=== PATIENT | female | born 1930 | race Caucasian/White ===

== ENCOUNTER 2018-03-02 00:27 | Inpatient (IN) | payer MEDICARE ==
[~2018-03-02] VITALS: Ht 157.5 cm; Wt 59.9 kg
[~2018-03-02 00:27] MED LIST: ARICEPT10 M1 PO; ASPIR 8181 MG PO; CALCIUM 600 +1 EAC1 PO; CELEXA20 MG PO; CEPACOL SORE T1 EAC7 MM; COZAAR 25MG TAB25 MG PO; IRON325 PO; LEVAQUIN 500 M500 M2 PO; LEVAQUIN 500 M500 MG PO; LIPITOR10 MG PO; MELATONIN3 MG PO; NORCO 5-325 TA1 EACH PO; PEPCID20 MG PO; TYLENOL325 MG PO; UNICOMPLEX M TA1 TA1 PO
[2018-03-02 00:29] VITALS: BP 119/54
[2018-03-02] MEDS ORDERED: DUONEB 2.5-0.5 M3 ML INH (00:56)
[2018-03-02 01:11] LABS: ABSOLUTE BASOPHILS 0.1 thou/uL (0.0-0.2); ABSOLUTE EOSINOPHILS 0.7 thou/uL (0.0-0.7); ABSOLUTE LYMPHOCYTES 1.7 thou/uL (0.8-5.3); ABSOLUTE MONOCYTES 1.4 thou/uL (0.0-1.2); ABSOLUTE NEUTROPHILS 9.5 thou/uL (1.6-8.1); BASOPHILS 0.6 %; EOSINOPHILS 5.2 %; HEMOGLOBIN 9.8 gm/dL (12.0-15.0); LYMPHOCYTES 12.7 %; MCH 29.9 pg (26.0-34.0); MCHC 32.6 g/dL (28.0-37.0); MCV 91.8 fL (80.0-100.0); MONOCYTES 10.4 %; MPV 9.6 fl. (7.2-11.1); NUCLEATED RBCS 0 /100WBC; PLATELET COUNT* 251 thou/uL (150-400); POLYS 71.1 %; RBC 3.27 mil/uL (4.20-5.00); RDW-CV 14.2 % (10.5-14.5); WBC 13.4 thou/uL (4.0-11.0)
[2018-03-02] MEDS ORDERED: VERAPAMIL ER180 MG PO (01:14)
[2018-03-02 01:16] LABS: CALCIUM 8.3 mg/dL (8.5-10.1); CREATININE 1.8 mg/dL (0.6-1.3); POTASSIUM 3.9 mmol/L (3.5-5.1)
[2018-03-02 01:21] LABS: TOTAL BILIRUBIN 0.3 mg/dL (<0.1-1.0); TOTAL PROTEIN 7.1 g/dL (6.4-8.2)
[2018-03-02] MEDS ORDERED: BENADRYL25 MG PO (01:30)
--- NOTE | 2018-03-02 01:39 | NUR ---
CALLED [facility] AND ASKED IF THEY NOTIFIED PT'S FAMILY OF TRANSFER TO ED.
--- NOTE | 2018-03-02 01:50 | NUR ---
TALKED WITH ISAAC ESCOTO AT [facility]. SHE TALKED WITH PT'S DAUGHTER WINSOME PRABHAKAR. NURSE IS CONCERNED BECAUSE PT LIVES IN [facility] AND YESTERDAY SHE WAS INCONTENT OF BOWEL AND BLADDER WHICH IS NEW FOR PT. PT ALSO C/O INCREASED BACK PAIN AND DIFFICULTY WALKING
[2018-03-02 02:01] LABS: URINE BLOOD 1+ (Negative); URINE CLARITY CLEAR; URINE COLOR YELLOW; URINE GLUCOSE-RANDOM NEGATIVE (Negative); URINE KETONES NEGATIVE (Negative); URINE LEUKOCYTES-REFLEX NEGATIVE (Negative); URINE NITRITE-REFLEX NEGATIVE (Negative); URINE PROTEIN TRACE (Negative); URINE UROBILINOGEN 0.2 E.U./dl (0.2-1.0)
[2018-03-02 02:04] LABS: URINE BILIRUBIN 1+ (Negative)
[2018-03-02 02:06] LABS: ICTOTEST (BILI CONFIRMATORY) Negative (Negative)
[2018-03-02 02:35] LABS: HYALINE CASTS 4-10 Moderate /LPF (None Seen); SQUAMOUS 0-3 Few /LPF (0-3); URINE WBC-REFLEX 0-5 Rare /HPF (0-5)
[2018-03-02 02:36] LABS: CRYSTALS None Seen /LPF (None Seen); URINE RBC 3-10 Few /HPF (0-2)
[2018-03-02 03:15] VITALS: BP 145/56
--- NOTE | 2018-03-02 05:37 | NUR ---
PT ADMITTED FROM ER. HISTORY AND ASSESSMENT COMPLETE. ORIENTED TO ROOM, CALL LIGHT, AND BED CONTROLS. PT WITH HX OF DEMENTIA. PT A POOR HISTORIAN. CONFUSED AND FORGETFUL. IVF INFUSING. PT WITH RED AREAS TO BOTTOM. PICTURES IN CHART. FALL PRECAUTIONS IN PLACE INCLUDING BED ALARM.
[2018-03-02 08:15] VITALS: BP 110/48
--- NOTE | 2018-03-02 08:52 | NUR ---
ASSUMED CARE OF PATIENT AFTER REPORT THIS MORNING. PATIENT SLEEPING, EASY TO WAKE, ALERT AND ORIENTED APPROPRIATELY. PHYSICAL ASSESSMENT COMPLETED AND CHARTED. NO COMPLAINTS OF PAIN. NO SCHEDULED MEDICATIONS ORDER TO ADMINISTER AT THIS TIME. WILL NOTIFY PHYSICIAN. PATIENT TRANSFERS AND AMBULATES WITH ASSISTANCE FROM STAFF. USES CALL LIGHT APPROPRIATELY. DENIES NEEDS AT THIS TIME. CALL LIGHT WITHIN REACH. NURSING WILL CONTINUE TO MONITOR.
--- NOTE | 2018-03-02 10:16 | EKG ---
[place] [address] ELECTROCARDIOGRAM REPORT Name: JONAH COHEN Room: [address] ADM IN ..#: [id number] Admission: 03/02/18 Attend Phys: Charlene Silva MD Discharge: Date of : 32 Report #: [id number] THIS REPORT FOR: //name// [facility] ED Test Date: 2018-03-02 Test Time: 02:39:16 Pat Name: JONAH COHEN Department: Room: [facility] Gender: F Care Associate: GL : 1930 Requested By: Santana Ball Order Number: [id number] MD: Ketan Dangelo Measurements Intervals Bladen Rate: 86 P: 79 CO: 138 QRS: 0 QRSD: 73 T: 29 QT: 432 QTc: 517 Interpretive Statements Sinus rhythm supraventricular premature complex Probable left atrial enlargement Low voltage, extremity leads Probable septal infarct, old Prolonged QT interval Compared to ECG 03/12/2012 11:20:06 supraventricular premature complex(es) now present Low QRS voltage now present Prolonged QT interval now present Myocardial infarct finding still present Electronically Signed On 03-02-2018 10:16:44 CDT by Ketan Dangelo [email or web address] <ELECTRONICALLY SIGNED> By: Ketan Dangelo MD, FACC 03/02/18 1016 0239 0239 Ketan Dangelo MD, FACC /EPI
[2018-03-02 11:45] VITALS: BP 108/45
--- NOTE | 2018-03-02 14:29 | NUR ---
CM ASSESSMENT: Pt is A&O. Resides at [facility]. Pt states that she normally is able to get around with a walker. Pt reports back pain since fall, discussed possible need for skilled, Pt open to skilled, but unsure of what she will need at this time. Pt states that she wears 2L o2 at [facility]. Supportive family that is involved in POC. Following.
[2018-03-02 15:37] VITALS: BP 132/58
--- NOTE | 2018-03-02 15:53 | 2DMMODE ---
[place] [address] 2 D/M-MODE ECHOCARDIOGRAM Name: JONAH COHEN Room: [address] IN [facility]#: [id number] Admission: 03/02/18 Attend Phys: Charlene Silva, Discharge: Date of : 32 Date of Service: 03/02/18 1553 Report #: [id number] THIS REPORT FOR: //name// APPROVED REPORT Study performed: 03/02/2018 11:43:56 EXAM: Comprehensive 2D, Doppler, and color-flow Echocardiogram Patient Location: In-Patient Room #: 202 Status: routine BSA: 1.57 HR: 87 bpm BP: 108/45 mmHg Rhythm: NSR Other Information Study Quality: Good Indications Murmur Syncope 2D Dimensions LVEF(%): 63.33 (>50%) IVSd: 10.37 (7-11mm) LVOT Diam: 19.25 (18-24mm) LVDd: 31.12 mm PWd: 10.04 (7-11mm) LVDs: 20.78 (25-40mm) Aortic Root: 26.94 mm Mayes's LVEF: 63.33 % Volumes Left Atrial Volume (Systole) LA ESV Index: 18.30 mL/m2 Aortic Valve AoV Peak Magdiel.: 1.76 m/s AO Peak Gr.: 12.39 mmHg LVOT Max P.02 mmHg AO Mean Gr.: 6.62 mmHg LVOT Mean P.08 mmHg LVOT Max V: 1.00 m/s AO V2 VTI: 32.86 cm LVOT Mean V: 0.68 m/s MARICRUZ (VTI): 2.19 cm2 LVOT V1 VTI: 24.79 [place] [address] 2 D/M-MODE ECHOCARDIOGRAM Name: JONAH COHEN Room: [address] IN M.R.#: [id number] Admission: 03/02/18 Attend Phys: Charlene Silva, Discharge: Date of : 32 Date of Service: 03/02/18 1553 Report #: [id number] E/A Ratio: 0.84 MV Decel. Time: 215.48 ms MV E Max Magdiel.: 1.26 m/s MV PHT: 62.49 ms MVA (PHT): 3.52 cm2 TDI E/Lateral E': 14.00 E/Medial E': 14.00 Medial E' Magdiel.: 0.09 m/s Lateral E' Magdiel.: 0.09 m/s Pulmonary Valve PV Peak Magdiel.: 1.37 m/s PV Peak Gr.: 7.50 mmHg Tricuspid Valve TR Peak Gr.: 56.36 mmHg RVSP: 61.00 mmHg Left Ventricle The left ventricle is normal size. There is normal LV segmental wall motion. There is normal left ventricular wall thickness. Left ventricular systolic function is normal. LVEF is 60-65%. Grade I - abnormal relaxation pattern. Right Ventricle The right ventricle is normal size. The right ventricular systolic function is normal. Atria The left atrium size is normal. The right atrium size is normal. Aortic Valve Mild aortic valve sclerosis. No aortic regurgitation is present. There is no aortic valvular stenosis. Mitral Valve There is mitral annular calcification. Trace mitral regurgitation. No evidence of mitral valve stenosis. Tricuspid Valve The tricuspid valve is normal in structure. Moderate tricuspid regurgitation. The RVSP is >60 mmHg. Pulmonic Valve The pulmonary valve is normal in structure. There is no pulmonic [place] [address] 2 D/M-MODE ECHOCARDIOGRAM Name: COHENJONAH Room: [address] IN [facility]#: [id number] Admission: 03/02/18 Attend Phys: Charlene Silva, Discharge: Date of : 32 Date of Service: 03/02/18 1553 Report #: [id number] Great Vessels The aortic root is normal in size. IVC is normal in size and collapses with >50% inspiration Pericardium There is no pericardial effusion. <Conclusion> The left ventricle is normal size. There is normal left ventricular wall thickness. Left ventricular systolic function is normal. LVEF is 60-65%. Grade I - abnormal relaxation pattern. Mild aortic valve sclerosis. Trace mitral regurgitation. Moderate tricuspid regurgitation. The RVSP is >60 mmHg. IVC is normal in size and collapses with >50% inspiration <ELECTRONICALLY SIGNED> By: Blane Zaman MD, FACC 03/02/18 1553 1553 1553 Blane Zaman MD, FACC /INF
--- NOTE | 2018-03-02 17:52 | NUR ---
PATIENT REMAINS ALERT AND ORIENTED APPROPRIATELY, CONFUSED AT TIMES AND FORGETFUL. TRANSFERS AND AMBULATES WITH ASSISTANCE FROM STAFF, USES CALL LIGHT APPROPRIATELY. GIVEN PRN MEDICATIONS FOR PAIN, SEE EMAR FOR DOCUMENTATION. DENIES NEEDS AT THIS TIME. CALL LIGHT WITHIN REACH. NURSING WILL CONTINUE TO MONITOR.
[2018-03-02 20:00] VITALS: BP 113/47
[2018-03-03] VITALS (7 sets, daily range): BP systolic 82–151; BP diastolic 33–64
--- NOTE | 2018-03-03 05:40 | NUR ---
PT CARE ASSUMED AFTER REPORT. ASSESSMENT COMPLETE. SR ON MONITOR. PRN PAIN MEDICATION GIVEN PER PT REQUEST. IVF INFUSING. PT CONFUSED AND FORGETFUL. O2 2L NC. FALL PRECAUTIONS IN PLACE INCLUDING BED ALARM. CALL LIGHT IN REACH. BED IN LOWEST POSITION. PROGRESSING TOWARDS GOALS.
--- NOTE | 2018-03-03 09:44 | NUR ---
ASSUMED CARE OF PATIENT AFTER REPORT THIS MORNING. PATIENT AWAKE, ALERT, AND ORIENTED TO SELF, PLACE, AND SITUATION. PHYSICAL ASSESSMENT COMPLETED AND CHARTED. COMPLAINDED OF PAIN. GIVEN PRN AND SCHEDULED MEDICATIONS, SEE EMAR FOR DOCUMENTATION. VITAL SIGNS STABLE. OXYGEN SATURATION LOW AT 85% ON 2 LPM. INCREASED OXYGEN ADMINISTRATION TO 4 LPM AND SATURATION INCREASED TO >90%. PHYSICAL THERAPY WALKED WITH PATIENT TO THE BATHROOM AND OXYGEN SATURATION DECREASED TO 75% ON 4 LPM PER NASAL CANULA. OXYGEN ADMINISTRATION INCREASED TO 6 LPM PER NASAL CANULA TO GET SATURATION > 90%. PHYSICIAN PAGED ABOUT PATIENT'S DIFFICULTY BREATHING. PATIENT IS AT REST AT THIS TIME AND IS ON 4 LPM PER NASAL CANULA WITH SATURATION > 90%. PATIENT TRANSFERS AND AMBULATES WITH TWO PERSON ASSISTANCE FROM STAFF. USES CALL LIGHT APPROPRIATELY. DENIES NEEDS AT THIS TIME. CALL LIGHT WITHIN REACH. NURSING WILL CONTINUE TO MONITOR.
[2018-03-03 12:13] LABS: HEMATOCRIT 27.9 % (37.0-47.0); HEMOGLOBIN 8.9 gm/dL (12.0-15.0); MCH 29.7 pg (26.0-34.0); MCHC 31.9 g/dL (28.0-37.0); MPV 9.1 fl. (7.2-11.1); NUCLEATED RBCS 0 /100WBC; PLATELET COUNT* 261 thou/uL (150-400); RDW-CV 14.2 % (10.5-14.5); WBC 9.9 thou/uL (4.0-11.0)
[2018-03-03 12:26] LABS: ALBUMIN 2.6 g/dL (3.4-5.0); CALCIUM 7.9 mg/dL (8.5-10.1); CREATININE 1.2 mg/dL (0.6-1.3); TOTAL BILIRUBIN 0.2 mg/dL (<0.1-1.0); TOTAL PROTEIN 6.4 g/dL (6.4-8.2)
[2018-03-03 12:37] LABS: ABSOLUTE EOSINOPHILS 0.1 thou/uL (0.0-0.7); ABSOLUTE LYMPHOCYTES 0.8 thou/uL (0.8-5.3); ABSOLUTE MONOCYTES 0.4 thou/uL (0.0-1.2); ABSOLUTE NEUTROPHILS 8.6 thou/uL (1.6-8.1); ANISOCYTOSIS 1+; OVALOCYTES Occasional; PLATELET ESTIMATE ADEQUATE; POIKILOCYTOSIS 1+
--- NOTE | 2018-03-03 17:42 | NUR ---
PATIENT REMAINS ALERT AND ORIENTED TO SELF, PLACE, AND SITUATION. HAS BEEN UP IN CHAIR AT BEDSIDE FOR MOST OF SHIFT. HAS USED BEDSIDE COMMODE SEVERAL TIMES WITH ASSISTANCE FROM STAFF. DENIES NEEDS AT THIS TIME. CALL LIGHT WITHIN REACH. NURSING WILL CONTINUE TO MONITOR.
[2018-03-04 04:00] VITALS: BP 120/57
--- NOTE | 2018-03-04 05:25 | NUR ---
PATIENT ALERT TO SELF, HISTORY OF DEMENTIA. PLEASANTLY CONFUSED. VITALS STABLE ON 4L OF OXYGEN. INCONTINENT OF URINE. REPOSITIONED EVERY TWO HOURS. COMPLAINTS OF BACK PAIN. HYDROCODONE GIVEN, EFFECTIVE. SINUS RHYTHM ON THE FREIGHT RECEIVER. SLEPT COMFORTABLY. UP WITH ASSIST X 1 WALKER, GAITBELT. BED ALARM IN USE. FREQUENT ROUNDS. NURSING WILL CONTINUE TO MONITOR.
[2018-03-04 08:00] VITALS: BP 134/40
--- NOTE | 2018-03-04 11:15 | NUR ---
Plan for Pt to dc to [facility] skilled, anticipate that Pt will be ready to dc tomorrow. Faxed referral, [facility] can accept Pt tomorrow.
[2018-03-04 12:00] VITALS: BP 117/47
[2018-03-04 16:00] VITALS: BP 124/59; BP 139/69; BP 143/57
--- NOTE | 2018-03-04 16:41 | NUR ---
RECEIVED REPORT. ASSUMED CARE OF PT AROUND 729. PT ALERT AND ORIENTED TO PERSON, PLACE, SITUATION AND MONTH. PT IS VERY FORGETFUL AND REPEATS HERSELF OFTEN, BUT VERY PLEASANT. H/O DEMENTIA. VSS. O2 SAT 97%, TITRATED DOWN TO 3L PER NC. IV INTACT AND SALINE LOCKED. PT UP TO BEDSIDE COMMODE WITH ASSIST X1 AND WALKER FOR SMALL BM. PT INCONTINENT OF URINE AND REQUESTING TO WEAR INCONTINENT BRIEFS. BREIFS CHECKED AND CHANGED Q2HRS AND PRN. PT EATING AND DRINKING WITHOUT ISSUE. PT HAS SAT UP IN BEDSIDE CHAIR MOST OF SHIFT. WAFFLE CUSHION OBTAINED AND PLACED UNDER BOTTOM IN CHAIR. CHAIR ALARM IS ON. ORTHOSTATIC BP'S CHARTED UNDER VITAL SIGNS 1600. PT WORKED WITH P.T. TODAY. BRUISE TO RIGHT ELBOW NOTED. PT CURRENTLY SITTING IN BEDSIDE CHAIR AWAITING DINNER AND WATCHING TV. FALL PRECAUTIONS IN PLACE. CALL LIGHT IS WITHIN REACH. ALL NEEDS MET AT THIS TIME. WCTM FOR DURATION OF SHIFT. HOURLY ROUNDING PERFORMED.
[2018-03-04 20:00] VITALS: BP 157/56
[2018-03-05] VITALS: BP 153/65
--- NOTE | 2018-03-05 05:22 | NUR ---
ASSUMED CARE OF PT AT 1900 ALERT BUT CONFUSED AT BASELINE VSS. PT ASSISTED TO BED AND POSITIONED PT IMMEDIATLY REPOSITIONED HERSELF ON HER BACK. PT INCONTINENT OF LG AMOUNTS OF URINE THROUGHOUT THE SHIFT INCONTINENCE CARE PROVIDED. PT DENIED ANY COMPLINTS AND SLEPT THROUGH THE NIGHT. WILL CONTINUE PLAN OF CARE.
[2018-03-05 08:00] VITALS: BP 128/43
--- NOTE | 2018-03-05 11:34 | NUR ---
ORDERS NOTED FOR DC TO SNF, PT TO GO TO [facility]. MED WITH PT AND SPOKE WITH ADAMR/RACHEL OVER THE PHONE, IN AGREEMENT. CALLED AND FAXED DC ORDERS TO [facility] SHE SET UP W/C VAN FOR 230PM. CHART COPIED AND ORDERS FAXED TO [facility]. RN HAS NUMBER TO CALL REPORT
[2018-03-05 11:41] VITALS: BP 128/43
[2018-03-05] MEDS ORDERED: LASIX 20 MG TAB20 MG PO (12:31)
--- NOTE | 2018-03-05 13:28 | NUR ---
RECEIVED REPORT. ASSUMED CARE OF PT AROUND 0730. PT ABLE TO ANSWER ORIENTEATION QUESTIONS BUT IS VERY FORGETFUL AND CONFUSED AT TIMES, REPEATINNG THE SAME QUESTIONS MANY TIMES. PT HAS DEMENTIA. PT IS M/S STATUS. AM ASSESSMENT AND VITALS COMPLETED CHARTED. IV INTACT AND SALINE LOCKED. PT HAS DENIED PAIN OR DISCOMFORT SO FAR THIS SHIFT. LATE THIS MORNING PT BECAME MORE SOB COMPARED TO YESTERDAY, UPPER LUNG LOBES SOUND COARSE AND WHEEZES ARE AUDIBLE WHEN ENTERING THE ROOM. PT VERY FATIGUED AND WANTING TO STAY IN BED. ONETIME ORDER OF IV LASIX OBTAINED FROM DR BLACK AND ADMINISTERED. LASIX 20MG DAILY ALSO ADDED TO MED REC PER DR BLACK. PT INCONTINENT - HAS BEEN REPOSITIONED AND CLEANED UP SEVERAL TIMES THIS SHIFT. PT SHOWING DECREASED APPETITE TODAY, STATING "I JUST WANT TO REST." DISCHARGE ORDERS RECIEVED FOR PT TO TRANSFER TO SKILLED FACILITY. DISCHARGE COMPLTED CHARTED. DISCHARGE PACKET PUT TOGEHTER AND READY TO SEND WITH TRANSPORTER. PT CURRENTLY RESTING IN BED. FALL PRECAUTIONS ARE IN PLACE. CALL LIGHT IS WITHIN REACH. HOURLY ROUNDING PERFORMED. WCTM FOR DURATION OF SHIFT.
--- NOTE | 2018-03-08 08:14 | CON ---
[address] [address] CONSULTATION Name: JONAH COHEN Room: [address] IN .R.#: [id number] Admission: 03/02/18 Attend Phys: Charlene Silva MD Discharge: 03/05/18 Date of : 31 Report #: [id number] THIS REPORT FOR: //name// CC: Charlene Rose INDICATION: Syncope. HISTORY OF PRESENT ILLNESS: The patient is a very pleasant 87-year-old white female who denies any significant prior cardiac history. Cardiac risk factors include hypertension and dyslipidemia. She was admitted to the hospital after being found unconscious in her room at [facility]. The patient does not recall falling. She does not recall passing out. She does report recalling being transported to the hospital for further evaluation. Since her fall, she complains of back and hip pain. She states that prior to her fall, she did not have back or hip pain. She denies chest pain. She is not having lightheadedness or dizziness. She is without other cardiac complaint at this time. Cardiac enzymes are unremarkable. EKG shows sinus rhythm with no significant ST or T-wave abnormalities. Telemetry monitoring shows sinus rhythm with no significant arrhythmias. PAST MEDICAL HISTORY: 1. Hyperlipidemia. 2. Hypertension. 3. Dementia. 4. Mild chronic obstructive pulmonary disease. 5. GERD. 6. Anemia. 7. Chronic back pain. PAST SURGICAL HISTORY: Right hip replacement. FAMILY HISTORY: Noncontributory. SOCIAL HISTORY: The patient is . She lives in assisted care. She does not smoke or drink. ALLERGIES: PENICILLIN, TETRACYCLINE, SULFA, PROTON PUMP INHIBITORS, IODINE, and ESZOPICLONE. CURRENT MEDICATIONS: Acetaminophen p.r.n., aspirin 81 mg daily, atorvastatin 10 mg at bedtime, Caltrate with vitamin D one tablet daily, Celexa 20 mg daily, Benadryl 25 mg p.r.n., Aricept 10 mg daily, Pepcid 20 mg at bedtime, iron sulfate 325 mg daily, [place] 5/325 q.6 hours p.r.n., DuoNeb inhaler as directed for congestion, Cozaar 25 mg daily, melatonin 3 mg at bedtime, multivitamin 1 tablet daily, verapamil [address] [place] [address] CONSULTATION Name: VICKIJONAH Pastrana Room: [address]#: [id number] Admission: 03/02/18 Attend Phys: Charlene Silva MD Discharge: 03/05/18 Date of : 31 Report #: [id number] REVIEW OF SYSTEMS: A 14-point review of systems is positive for pneumonia years ago and syncope. She reports a history of heart murmur, history of anemia, seasonal allergies, possible PENICILLIN allergy. She wears glasses without acute visual changes and has dentures. Otherwise, 14-point review of systems was unremarkable. PHYSICAL EXAMINATION: VITAL SIGNS: Stable. Blood pressure 132/58, pulse 83 and regular. GENERAL: This is a pleasant elderly female, in no distress. Mood and affect appropriate. HEENT: Normocephalic, atraumatic. Extraocular muscles are intact. Mucous membranes are moist. NECK: Shows no jugular venous distention. I do not appreciate bruit. CHEST: Reveals clear lung fenton without wheezes or rales. CARDIAC: Reveals a regular rhythm with normal S1 and S2. I do not appreciate gallop or murmur. ABDOMEN: Reveals normal bowel sounds. The abdomen is soft and nontender. EXTREMITIES: Shows no edema. Peripheral pulses are 2+ and palpable. SKIN: Warm and dry. A 12-lead EKG shows sinus rhythm with no significant ST or T-wave abnormalities. LABS: Reviewed. Sodium 139, potassium 3.9, chloride 102, bicarb 30, BUN 36, creatinine 1.8, and serum glucose 109. EGFR 27. Troponins less than 0.06. White blood cell count 13.4, hemoglobin 9.8, and platelet count 251,000. IMPRESSION AND RECOMMENDATIONS: 1. Syncope, etiology not clear. Thus far, telemetry monitoring shows no abnormalities. EKG shows no abnormalities. Her cardiac enzymes are unremarkable. Echocardiogram ordered and pending. At this point, I do not believe further cardiac workup needed. 2. Hypertension, adequately controlled on combination of losartan and verapamil. 3. Hyperlipidemia. Continue low dose statin agent as outlined above. 4. Chronic renal insufficiency, per primary physician. 5. History of mitral valve prolapse. Follow up with echocardiograms. <ELECTRONICALLY SIGNED> By: Blane Zaman MD, FACC 03/08/18 0814 170 1954[facility], FACC /nt
== END 2018-03-05 14:31 | DRG 177 ==
LOC: M.ERS 00:27 → M.2W 02:23 → M.TBA-ER 02:23 → M.2W 02:42
PROVIDERS: Emergency Medicine; Internal Medicine; ADMIT Internal Medicine
PROC: B24BZZ4 Ultrasonography of Heart with Aorta, Transesophageal (ICD-10-PCS; principal; 2018-03-02)
DX: J15.6 Pneumonia due to other Gram-negative bacteria (principal); G93.40 Encephalopathy, unspecified; J96.01 Acute respiratory failure with hypoxia; N39.0 Urinary tract infection, site not specified; N17.9 Acute kidney failure, unspecified; J44.0 Chronic obstructive pulmonary disease with (acute) lower respiratory infection; E86.0 Dehydration; Z96.641 Presence of right artificial hip joint; F03.90 Unspecified dementia, unspecified severity, without behavioral disturbance, psychotic disturbance, mood disturbance, and anxiety; E78.5 Hyperlipidemia, unspecified; N18.9 Chronic kidney disease, unspecified; G89.29 Other chronic pain; M54.5 Low back pain; I12.9 Hypertensive chronic kidney disease with stage 1 through stage 4 chronic kidney disease, or unspecified chronic kidney disease; I25.10 Atherosclerotic heart disease of native coronary artery without angina pectoris; E55.9 Vitamin D deficiency, unspecified; E53.8 Deficiency of other specified B group vitamins; K21.9 Gastro-esophageal reflux disease without esophagitis; Z87.891 Personal history of nicotine dependence; Z79.82 Long term (current) use of aspirin; Z79.899 Other long term (current) drug therapy; Z88.0 Allergy status to penicillin; Z88.2 Allergy status to sulfonamides; Z88.8 Allergy status to other drugs, medicaments and biological substances; Z88.1 Allergy status to other antibiotic agents; Z91.041 Radiographic dye allergy status

== ENCOUNTER 2018-03-14 12:00 | Inpatient (IN) | payer MEDICARE ==
[~2018-03-14] VITALS: Ht 157.5 cm; Wt 53.1 kg
[~2018-03-14 12:00] MED LIST changes: +BENADRYL25 MG PO; +DUONEB 2.5-0.5 M3 ML INH; +LASIX 20 MG TAB20 MG PO; +VERAPAMIL ER180 MG PO
[2018-03-14 12:01] VITALS: BP 139/64
[2018-03-14] MEDS ORDERED: BENADRYL25 MG PO (12:19)
[2018-03-14] MEDS ORDERED: IBUPROFEN 200200 M1 PO (12:22)
[2018-03-14] MEDS ORDERED: ENSURE PLUS237 ML PO (12:23)
[2018-03-14 12:33] LABS: ABSOLUTE BASOPHILS 0.1 thou/uL (0.0-0.2); ABSOLUTE EOSINOPHILS 0.2 thou/uL (0.0-0.7); ABSOLUTE LYMPHOCYTES 2.1 thou/uL (0.8-5.3); ABSOLUTE MONOCYTES 1.3 thou/uL (0.0-1.2); ABSOLUTE NEUTROPHILS 12.5 thou/uL (1.6-8.1); BASOPHILS 0.6 %; EOSINOPHILS 1.4 %; HEMATOCRIT 30.3 % (37.0-47.0); HEMOGLOBIN 9.9 gm/dL (12.0-15.0); MCH 29.2 pg (26.0-34.0); MCHC 32.6 g/dL (28.0-37.0); MCV 89.5 fL (80.0-100.0); MONOCYTES 8.2 %; MPV 9.4 fl. (7.2-11.1); NUCLEATED RBCS 0 /100WBC; PLATELET COUNT* 367 thou/uL (150-400); POLYS 76.8 %; RBC 3.38 mil/uL (4.20-5.00); RDW-CV 13.9 % (10.5-14.5); WBC 16.3 thou/uL (4.0-11.0)
[2018-03-14 12:43] LABS: ANION GAP 7 mmol/L (7-16); APTT 25.4 Seconds (25.0-31.3); BUN 12 mg/dL (7-18); CALCIUM 8.6 mg/dL (8.5-10.1); CHLORIDE 101 mmol/L (98-107); CO2 32 mmol/L (21-32); GLUCOSE 94 mg/dL (70-99); INR 1.1; POTASSIUM 3.1 mmol/L (3.5-5.1); PROTIME 10.8 Seconds (9.20-11.50); SODIUM 140 mmol/L (136-145)
[2018-03-14 13:02] LABS: ALBUMIN 2.8 g/dL (3.4-5.0); ALKALINE PHOSPHATASE 234 U/L (46-116); CK-MB MASS < 0.5 ng/mL (<0.5-3.6); LIPASE 258 U/L (73-393); MAGNESIUM 1.5 mg/dL (1.8-2.4); NT-PRO BRAIN NAT PEPTIDE 772 pg/mL (<300); SGOT 20 U/L (15-37); SGPT 22 U/L (30-65); TOTAL BILIRUBIN 0.3 mg/dL (<0.1-1.0); TOTAL PROTEIN 6.5 g/dL (6.4-8.2); TROPONIN-I LEVEL <0.06 ng/mL (<0.06)
[2018-03-14 17:55] VITALS: BP 118/38
[2018-03-14 18:00] VITALS: BP 142/66
--- NOTE | 2018-03-14 18:00 | NUR ---
RECEIVED REPORT. PT TRANSFERRED TO ROOM 226 VIA CART. VSS. CARDIAC MONTIORING IN PLACE. ADMISSION HISTORY AND ASSESSMENT COMPELTED CHARTED. PT ALERT. PT CONFUSED AND FORGETFUL. PT ON 4L PER NC WITH O2 SAT AT 96% PT'S IV INFILTRATED UPON TRANSFER. NEW IV SATARTED TO RIGHT AC. PT ORIETNED TO ROOM AND CALL LGIHT. FALL PERCATIONS IN PLACE. CALL LIGHT IS WITHIN REACH. WILL CONTIINUE TO MONITOR.
[2018-03-14 19:30] VITALS: BP 125/50
[2018-03-15] VITALS: BP 125/46
[2018-03-15 04:18] VITALS: BP 96/51
[2018-03-15 05:01] LABS: HEMOGLOBIN 9.5 gm/dL (12.0-15.0); MCH 29.5 pg (26.0-34.0); MCHC 32.9 g/dL (28.0-37.0); MCV 89.8 fL (80.0-100.0); MPV 9.7 fl. (7.2-11.1); NUCLEATED RBCS 0 /100WBC; PLATELET COUNT* 327 thou/uL (150-400); RBC 3.23 mil/uL (4.20-5.00); RDW-CV 13.5 % (10.5-14.5); WBC 12.2 thou/uL (4.0-11.0)
[2018-03-15 05:10] LABS: PREALBUMIN 20.8 mg/dL (18.0-35.7)
[2018-03-15 05:25] LABS: ANION GAP 7 mmol/L (7-16); BUN 21 mg/dL (7-18); CALCIUM 8.3 mg/dL (8.5-10.1); CHLORIDE 104 mmol/L (98-107); CO2 28 mmol/L (21-32); CREATININE 1.2 mg/dL (0.6-1.3); GLUCOSE 142 mg/dL (70-99); MAGNESIUM 1.7 mg/dL (1.8-2.4); NT-PRO BRAIN NAT PEPTIDE 1611 pg/mL (<300); POTASSIUM 4.8 mmol/L (3.5-5.1); SODIUM 139 mmol/L (136-145); TROPONIN-I LEVEL <0.06 ng/mL (<0.06)
[2018-03-15 06:03] LABS: ABSOLUTE LYMPHOCYTES 0.6 thou/uL (0.8-5.3); ABSOLUTE MONOCYTES 0.2 thou/uL (0.0-1.2); ABSOLUTE NEUTROPHILS 11.3 thou/uL (1.6-8.1); ANISOCYTOSIS 1+; PLATELET ESTIMATE ADEQUATE
[2018-03-15 06:04] LABS: POIKILOCYTOSIS 1+
--- NOTE | 2018-03-15 06:31 | NUR ---
PATIENT ALERT BUT FORGETFUL. SHE WILL FREQUENTLY ASK FOR THE SAME THING SEVERAL TIMES. UP WITH STAND BY ASSIST. NO C/O CHEST PAIN. TYLENOL GIVEN FOR BACK PAIN AND HELPFUL. INCONTINENT OF STOOL AND URINE. RYAN AREA RED AND BARRIER CREAM APPLIED. ON O2 AT 2L/NC WITH O2 SATS IN MID 90'S. CALL LIGHT WITHIN REACH. WILL CONTINUE TO MONITOR.
[2018-03-15 08:00] VITALS: BP 120/66
--- NOTE | 2018-03-15 11:45 | NUR ---
MET WITH PT TO DISCUSS HOME SITUATION/DC PLANNING. PT KNOWN TO CM FROM PREVIOUS HOSPITAL STAY. PT LIVES AT [facility] IN [facility], WAS RECENTLY DC'D BACK THERE TO SNF. PLAN IS FOR HER TO RETURN TO SNF AT DC. PT USES WALKER AND O2. WILL FOLLOW
[2018-03-15 11:55] VITALS: BP 131/47
[2018-03-15 15:16] VITALS: BP 102/66
--- NOTE | 2018-03-15 15:59 | EKG ---
[place] [address] ELECTROCARDIOGRAM REPORT Name: JONAH COHEN Room: [address] ADM IN .R.#: [id number] Admission: 03/14/18 Attend Phys: Galen Lambert MD Discharge: Date of : 31 Report #: [id number] THIS REPORT FOR: //name// [facility] Test Date: 2018-03-14 Test Time: 12:06:34 Pat Name: JONAH COHEN Department: Room: [facility] Gender: F Gum Worker: RAYMUNDO : 1930 Requested By: Julio Cesar Dougherty Order Number: [id number] MD: Eddie Germain Measurements Intervals Bard Rate: 72 P: 77 CA: 123 QRS: 5 QRSD: 77 T: 48 QT: 461 QTc: 505 Interpretive Statements Sinus rhythm Probable left atrial enlargement Probable anteroseptal infarct, old Prolonged QT interval Compared to ECG 03/02/2018 02:39:16 No significant changes Electronically Signed On 03-15-2018 15:58:50 CDT by Eddie Germain [email or web address] <ELECTRONICALLY SIGNED> By: Eddie Germain MD, [facility] 03/15/18 1558 1206 1206 Eddie Germain MD, [facility] /EPI
--- NOTE | 2018-03-15 17:35 | NUR ---
ASSUMED CARE OF PT AT 0730. PT CONTINUES TO BE ALERT TO SELF AND COOPERATIVE. PT HAS BEEN STABLE ON 2L OF SUPPLEMENTAL OXYGEN VIA NC. PT HAS BEEN TRACING ST ON THE MONITOR. PT HAS A GOOD APPETITE AND HAS ATE GREATER THAN 50% OF ALL MEALS TODAY. PT UP TO BEDSIDE COMMODE SEVERAL TIMES TODAY BUT SHE ALSO HAD SEVERAL EPISODES OF INCONTINENCE THROUGH THE SHIFT. PT C/O BACK AND RIGHT HIP PAIN BUT WHEN ASKED SHE DENIES THE NEED FOR PHARMACOLOGICAL INTERVENTION. PT CURRENTYL RESTING IN BED WATCHING TV. NURSING WILL CONTINUE TO MONITOR.
[2018-03-15 20:00] VITALS: BP 123/44
[2018-03-16] VITALS: BP 128/54
--- NOTE | 2018-03-16 03:05 | NUR ---
PT ALERT. PT STATES SHE IS DEPRESSED AND NEEDS MEDICATION. RN ASKED IF PT FELT ANXIOUS AND SHE STATED NO JUST DEPRESSED. WILL PASS ALONG IN REPORT. ALLOWED FOR VERBILIZATION OF FEELINGS. PT TEACHING RE DEPRESSION. TELEMETRT SHOWS SR. O2 AT 2 LITERS NC. PT IS ALSO ON HOME O2. WILL CONTINUE TO MONITOR.
[2018-03-16 04:00] VITALS: BP 124/50
[2018-03-16 05:48] LABS: HEMATOCRIT 28.4 % (37.0-47.0); HEMOGLOBIN 9.3 gm/dL (12.0-15.0); MCH 29.2 pg (26.0-34.0); MCHC 32.8 g/dL (28.0-37.0); MCV 89.1 fL (80.0-100.0); NUCLEATED RBCS 0 /100WBC; PLATELET COUNT* 319 thou/uL (150-400); RBC 3.19 mil/uL (4.20-5.00); WBC 23.5 thou/uL (4.0-11.0)
[2018-03-16 05:58] LABS: CALCIUM 8.7 mg/dL (8.5-10.1); CREATININE 1.3 mg/dL (0.6-1.3); POTASSIUM 5.6 mmol/L (3.5-5.1)
[2018-03-16 06:43] LABS: ABSOLUTE LYMPHOCYTES 1.4 thou/uL (0.8-5.3); ABSOLUTE MONOCYTES 0.2 thou/uL (0.0-1.2); ABSOLUTE NEUTROPHILS 21.9 thou/uL (1.6-8.1); PLATELET ESTIMATE ADEQUATE
--- NOTE | 2018-03-16 06:58 | NUR ---
WBC 23.5, K 5.6. DR SIMPSON NOTIFIED THROUGH YOU CALL
[2018-03-16 07:50] VITALS: BP 134/57
--- NOTE | 2018-03-16 11:12 | NUR ---
ORDERS NOTED FOR DC BACK TO [facility]. CALLED AND LEFT MESSAGE FOR [facility], AWAIT CALL BACK. FAXED ORDERS TO [facility]. CHART COPIED. UPDATED PT AND DTR/WINSOME, IN AGREEMENT. AWAIT CALL BACK FROM [facility] FOR TIME
[2018-03-16 11:50] VITALS: BP 112/47
[2018-03-16] MEDS ORDERED: TRAMADOL 50 MG50 MG PO (12:57)
[2018-03-16 13:00] VITALS: BP 112/47
[2018-03-16] MEDS ORDERED: LEVAQUIN 250 M250 MG PO (13:00)
--- NOTE | 2018-03-16 14:26 | NUR ---
CALLED REPORT TO [facility]. SPOKE WITH DAGO OSWALD
--- NOTE | 2018-03-16 14:55 | NUR ---
PT DC'D TO [facility]. PT DENIES PAIN OR OTHER DISCOMFORTS, BECOMES SLIGHTLY SOA WITH EXERTION. PT IV REMOVED INTACT BEFORE DISMISSAL. DC PACKET SENT WITH PT.
== END 2018-03-16 14:47 | DRG 177 ==
LOC: M.ERS 12:00 → M.2W 12:58 → M.TBA-ER 12:58 → M.2W 18:03
PROVIDERS: Family Medicine; ADMIT Internal Medicine
DX: J69.0 Pneumonitis due to inhalation of food and vomit (principal); G93.40 Encephalopathy, unspecified; J96.91 Respiratory failure, unspecified with hypoxia; J44.1 Chronic obstructive pulmonary disease with (acute) exacerbation; E78.00 Pure hypercholesterolemia, unspecified; Z96.641 Presence of right artificial hip joint; F03.90 Unspecified dementia, unspecified severity, without behavioral disturbance, psychotic disturbance, mood disturbance, and anxiety; I10 Essential (primary) hypertension; K21.9 Gastro-esophageal reflux disease without esophagitis; G89.29 Other chronic pain; M54.9 Dorsalgia, unspecified; Z88.0 Allergy status to penicillin; Z88.2 Allergy status to sulfonamides; Z88.8 Allergy status to other drugs, medicaments and biological substances; Z88.1 Allergy status to other antibiotic agents; Z91.041 Radiographic dye allergy status; Z87.891 Personal history of nicotine dependence; Z79.82 Long term (current) use of aspirin; Z79.899 Other long term (current) drug therapy

== ENCOUNTER 2018-11-23 19:15 | Inpatient (IN) | payer MEDICARE, MEDICAID ==
[~2018-11-23] VITALS: Ht 157.5 cm; Wt 49.9 kg
[~2018-11-23 19:15] MED LIST changes: +ENSURE PLUS237 ML PO; +IBUPROFEN 200200 M1 PO; +LEVAQUIN 250 M250 MG PO; +TRAMADOL 50 MG50 MG PO
[2018-11-23 19:19] VITALS: BP 141/69
[2018-11-23 20:02] LABS: ABSOLUTE BASOPHILS 0.1 thou/uL (0.0-0.2); ABSOLUTE EOSINOPHILS 0.3 thou/uL (0.0-0.7); ABSOLUTE LYMPHOCYTES 1.2 thou/uL (0.8-5.3); ABSOLUTE MONOCYTES 0.9 thou/uL (0.0-1.2); ABSOLUTE NEUTROPHILS 7.2 thou/uL (1.6-8.1); BASOPHILS 0.6 %; HEMATOCRIT 33.5 % (37.0-47.0); LYMPHOCYTES 12.1 %; MCH 29.8 pg (26.0-34.0); MCHC 32.8 g/dL (28.0-37.0); MCV 90.8 fL (80.0-100.0); MONOCYTES 9.5 %; MPV 9.9 fl. (7.2-11.1); NUCLEATED RBCS 0 /100WBC; PLATELET COUNT* 281 thou/uL (150-400); POLYS 74.8 %; RBC 3.69 mil/uL (4.20-5.00); WBC 9.6 thou/uL (4.0-11.0)
[2018-11-23 20:06] LABS: CALCIUM 8.7 mg/dL (8.5-10.1); CREATININE 1.3 mg/dL (0.6-1.3)
[2018-11-23 20:11] LABS: ALBUMIN 3.2 g/dL (3.4-5.0); TOTAL BILIRUBIN 0.1 mg/dL (<0.1-1.0); TOTAL PROTEIN 7.4 g/dL (6.4-8.2)
[2018-11-23 20:22] LABS: INFLUENZA A ANTIGEN None Detected (None Detect); INFLUENZA B ANTIGEN None Detected (None Detect)
[2018-11-23 20:25] LABS: URINE BILIRUBIN NEGATIVE (Negative); URINE BLOOD TRACE (Negative); URINE CLARITY CLEAR; URINE COLOR YELLOW; URINE GLUCOSE-RANDOM NEGATIVE (Negative); URINE KETONES NEGATIVE (Negative); URINE LEUKOCYTES-REFLEX NEGATIVE (Negative); URINE NITRITE-REFLEX NEGATIVE (Negative); URINE PROTEIN NEGATIVE (Negative); URINE UROBILINOGEN 0.2 E.U./dl (0.2-1.0)
[2018-11-23 23:15] VITALS: BP 143/60
[2018-11-24] VITALS: BP 149/57
[2018-11-24] MEDS ORDERED: TYLENOL EXTRA500 MG PO (02:18)
[2018-11-24 08:30] VITALS: BP 125/62
--- NOTE | 2018-11-24 13:59 | EKG ---
[place] [address] ELECTROCARDIOGRAM REPORT Name: JONAH COHEN Room: [address] ADM IN .R.#: [id number] Admission: 11/23/18 Attend Phys: Galen Lambert MD Discharge: Date of : 32 Report #: [id number] THIS REPORT FOR: //name// [facility] ED Test Date: 2018-11-23 Test Time: 23:13:22 Pat Name: JONAH COHEN Department: Room: [address] Gender: F Sybase Developer: Bruce MALIN : 1930 Requested By: Galen Lambert Order Number: [id number] Reading MD: Ketan Dangelo Measurements Intervals Cora Rate: 98 P: 87 WI: 136 QRS: 5 QRSD: 74 T: 62 QT: 371 QTc: 474 Interpretive Statements Sinus rhythm Probable septal infarct, old Compared to ECG 03/14/2018 12:06:34 Prolonged QT interval no longer present Myocardial infarct finding still present Electronically Signed On 11-24-2018 13:59:21 ACTIVITIES VOLUNTEER by Ketan Dangelo [email or web address] <ELECTRONICALLY SIGNED> By: Ketan Dangelo MD, [facility] 11/24/18 1359 2313 2313 Ketan Dangelo MD, [facility] /EPI
[2018-11-24 16:32] VITALS: BP 124/54
[2018-11-24 20:19] VITALS: BP 125/47
[2018-11-25] VITALS: BP 119/68
[2018-11-25 05:13] LABS: HEMATOCRIT 28.9 % (37.0-47.0); HEMOGLOBIN 9.5 gm/dL (12.0-15.0); MCH 30.2 pg (26.0-34.0); MCV 91.7 fL (80.0-100.0); RBC 3.15 mil/uL (4.20-5.00); WBC 7.8 thou/uL (4.0-11.0)
[2018-11-25 06:00] LABS: CALCIUM 8.5 mg/dL (8.5-10.1); CREATININE 1.4 mg/dL (0.6-1.3); MAGNESIUM 2.1 mg/dL (1.8-2.4); POTASSIUM 4.5 mmol/L (3.5-5.1)
[2018-11-25 08:37] VITALS: BP 167/71
[2018-11-25 11:55] VITALS: BP 163/65
[2018-11-25 16:25] VITALS: BP 164/65
[2018-11-25 20:37] VITALS: BP 153/60
[2018-11-25 23:57] VITALS: BP 132/60
[2018-11-26 04:00] VITALS: BP 132/76
[2018-11-26 05:10] LABS: HEMATOCRIT 34.4 % (37.0-47.0); HEMOGLOBIN 11.2 gm/dL (12.0-15.0); MCH 29.6 pg (26.0-34.0); MCHC 32.6 g/dL (28.0-37.0); MCV 90.8 fL (80.0-100.0); RBC 3.79 mil/uL (4.20-5.00); RDW-CV 13.7 % (10.5-14.5); WBC 6.2 thou/uL (4.0-11.0)
[2018-11-26 06:09] LABS: CALCIUM 8.9 mg/dL (8.5-10.1); CREATININE 1.5 mg/dL (0.6-1.3); MAGNESIUM 2.3 mg/dL (1.8-2.4); POTASSIUM 4.6 mmol/L (3.5-5.1)
[2018-11-26 08:49] VITALS: BP 131/77
[2018-11-26] MEDS ORDERED: MUCINEX600 MG PO (10:40)
[2018-11-26] MEDS ORDERED: PREDNISONE 20 M20 MG PO (10:40)
[2018-11-26] MEDS ORDERED: CEFDINIR300 MG PO (10:40)
[2018-11-26] MEDS ORDERED: PULMICORT0.5 MG/2 M INH (10:40)
[2018-11-26] MEDS ORDERED: SINGULAIR 10 MG10 M1 PO (10:40)
[2018-11-26] MEDS ORDERED: AZITHROMYCIN 2250 MG PO (10:40)
[2018-11-26 12:00] VITALS: BP 142/60
[2018-11-26 16:00] VITALS: BP 147/64
[2018-11-26 20:33] VITALS: BP 144/56
[2018-11-26 23:27] VITALS: BP 162/81
[2018-11-27 05:13] LABS: HEMOGLOBIN 11.1 gm/dL (12.0-15.0); MCH 29.6 pg (26.0-34.0); MCHC 32.7 g/dL (28.0-37.0); MCV 90.4 fL (80.0-100.0); MPV 10.3 fl. (7.2-11.1); RBC 3.76 mil/uL (4.20-5.00); RDW-CV 13.7 % (10.5-14.5); WBC 7.8 thou/uL (4.0-11.0)
[2018-11-27 05:51] LABS: CALCIUM 8.7 mg/dL (8.5-10.1); CREATININE 1.4 mg/dL (0.6-1.3); MAGNESIUM 2.6 mg/dL (1.8-2.4); POTASSIUM 5.4 mmol/L (3.5-5.1)
[2018-11-27 07:46] VITALS: BP 140/49
[2018-11-27 16:27] VITALS: BP 143/51
[2018-11-27 20:00] VITALS: BP 151/54
[2018-11-28] VITALS: BP 122/49
[2018-11-28 04:21] LABS: ABSOLUTE LYMPHOCYTES 1.8 thou/uL (0.8-5.3); ABSOLUTE MONOCYTES 1.2 thou/uL (0.0-1.2); ABSOLUTE NEUTROPHILS 6.9 thou/uL (1.6-8.1); BASOPHILS 0.2 %; HEMATOCRIT 31.5 % (37.0-47.0); HEMOGLOBIN 10.7 gm/dL (12.0-15.0); LYMPHOCYTES 17.9 %; MCH 30.7 pg (26.0-34.0); MCHC 33.9 g/dL (28.0-37.0); MCV 90.6 fL (80.0-100.0); MONOCYTES 11.7 %; MPV 10.3 fl. (7.2-11.1); NUCLEATED RBCS 0 /100WBC; PLATELET COUNT* 263 thou/uL (150-400); POLYS 70.2 %; RBC 3.48 mil/uL (4.20-5.00); RDW-CV 13.6 % (10.5-14.5); WBC 9.8 thou/uL (4.0-11.0)
[2018-11-28 04:58] LABS: CALCIUM 8.3 mg/dL (8.5-10.1); CREATININE 1.5 mg/dL (0.6-1.3)
[2018-11-28 05:06] LABS: POTASSIUM 4.4 mmol/L (3.5-5.1)
[2018-11-28 08:00] VITALS: BP 136/62
[2018-11-28] MEDS ORDERED: CEFDINIR300 MG PO (12:37)
[2018-11-28] MEDS ORDERED: AZITHROMYCIN 2250 MG PO (12:37)
[2018-11-28 12:48] VITALS: BP 136/62
== END 2018-11-28 16:21 | DRG 177 ==
LOC: M.ERS 19:15 → M.TBA-ER 22:26 → M.2W 22:26 → M.ORTHSURG 11-27 22:40
PROVIDERS: Emergency Medicine; Family Medicine; Internal Medicine; ADMIT Internal Medicine
DX: J69.0 Pneumonitis due to inhalation of food and vomit (principal); J96.21 Acute and chronic respiratory failure with hypoxia; J44.1 Chronic obstructive pulmonary disease with (acute) exacerbation; N18.4 Chronic kidney disease, stage 4 (severe); E78.00 Pure hypercholesterolemia, unspecified; Z96.641 Presence of right artificial hip joint; F03.90 Unspecified dementia, unspecified severity, without behavioral disturbance, psychotic disturbance, mood disturbance, and anxiety; K21.9 Gastro-esophageal reflux disease without esophagitis; G89.29 Other chronic pain; M54.9 Dorsalgia, unspecified; I34.1 Nonrheumatic mitral (valve) prolapse; J84.10 Pulmonary fibrosis, unspecified; Z66 Do not resuscitate; I12.9 Hypertensive chronic kidney disease with stage 1 through stage 4 chronic kidney disease, or unspecified chronic kidney disease; I34.0 Nonrheumatic mitral (valve) insufficiency; I07.1 Rheumatic tricuspid insufficiency; Z79.899 Other long term (current) drug therapy; Z88.0 Allergy status to penicillin; Z88.2 Allergy status to sulfonamides; Z88.8 Allergy status to other drugs, medicaments and biological substances; Z88.1 Allergy status to other antibiotic agents; Z91.041 Radiographic dye allergy status

== ENCOUNTER 2019-12-13 23:34 | Inpatient (IN) | payer MEDICARE, MEDICAID ==
[~2019-12-13] VITALS: Ht 157.5 cm; Wt 63.5 kg
[~2019-12-13 23:34] MED LIST changes: +AZITHROMYCIN 2250 MG PO; +CEFDINIR300 MG PO; +MUCINEX600 MG PO; +PREDNISONE 20 M20 MG PO; +PULMICORT0.5 MG/2 M INH; +SINGULAIR 10 MG10 M1 PO; +TYLENOL EXTRA500 MG PO
[2019-12-13 23:36] VITALS: BP 151/51
[2019-12-13] MEDS ORDERED: ZOFRAN4 MG PO (23:43)
[2019-12-13] MEDS ORDERED: KIDS VITAMIN400 UNIT PO (23:44)
[2019-12-13] MEDS ORDERED: IPRAT-ALBUT 0.5-3 ML INH (23:46)
[2019-12-14 00:34] LABS: ABSOLUTE BASOPHILS 0.1 thou/uL (0.0-0.2); ABSOLUTE EOSINOPHILS 0.6 thou/uL (0.0-0.7); ABSOLUTE LYMPHOCYTES 2.1 thou/uL (0.8-5.3); ABSOLUTE MONOCYTES 1.4 thou/uL (0.0-1.2); ABSOLUTE NEUTROPHILS 8.3 thou/uL (1.6-8.1); BASOPHILS 1.1 %; EOSINOPHILS 4.8 %; HEMATOCRIT 29.5 % (37.0-47.0); HEMOGLOBIN 9.6 gm/dL (12.0-15.0); LYMPHOCYTES 16.8 %; MCH 27.8 pg (26.0-34.0); MCHC 32.6 g/dL (28.0-37.0); MCV 85.3 fL (80.0-100.0); MONOCYTES 11.1 %; NUCLEATED RBCS 0 /100WBC; PLATELET COUNT* 392 thou/uL (150-400); POLYS 66.2 %; RBC 3.45 mil/uL (4.20-5.00); RDW-CV 14.2 % (10.5-14.5); WBC 12.5 thou/uL (4.0-11.0)
[2019-12-14 00:52] LABS: CALCIUM 7.7 mg/dL (8.5-10.1); CREATININE 1.4 mg/dL (0.6-1.3); POTASSIUM 3.9 mmol/L (3.5-5.1); PROTIME 10.3 Seconds (9.20-11.50)
[2019-12-14 01:02] LABS: TOTAL BILIRUBIN 0.1 mg/dL (<0.1-1.0); TOTAL PROTEIN 6.6 g/dL (6.4-8.2)
[2019-12-14 01:51] LABS: URINE BILIRUBIN NEGATIVE (Negative); URINE BLOOD 1+ (Negative); URINE CLARITY CLOUDY; URINE COLOR YELLOW; URINE GLUCOSE-RANDOM NEGATIVE (Negative); URINE KETONES NEGATIVE (Negative); URINE NITRITE-REFLEX NEGATIVE (Negative); URINE PROTEIN 1+ (Negative); URINE SPECIFIC GRAVITY 1.015 (1.005-1.030); URINE UROBILINOGEN 0.2 E.U./dl (0.2-1.0)
[2019-12-14 02:05] VITALS: BP 158/56
[2019-12-14 02:06] LABS: URINE LEUKOCYTES-REFLEX 3+ (Negative)
[2019-12-14 02:10] LABS: CASTS None Seen /LPF (None Seen); SQUAMOUS NONE SEEN /LPF (0-3); URINE WBC-REFLEX >25 Many /HPF (0-5)
[2019-12-14 02:11] LABS: BACTERIA-REFLEX >30 Many /HPF (None Seen); CRYSTALS None Seen /LPF (None Seen); URINE RBC 3-10 Few /HPF (0-2)
[2019-12-14 07:30] VITALS: BP 106/59
--- NOTE | 2019-12-14 08:09 | NUR ---
RECEIVED PATIENT REPORT FROM ER NURSE, VERO AT 0155. PATIENT ARRIVED ON FLOOR AT 0220. PATIENT ORIENTED TO UNIT, ROOM, BED, CALL-LIGHT, AND HOSPITAL POLICY. ASSESSMENT COMPLETED CHARTED. PATIENT STATED THAT SHE WAS IN PAIN, MEDICATIONS GIVEN PER EMAR. PATIENT LATER STATED THAT SHE STILL HAD A LOT OF PAIN. PHYSICIAN NOTIFIED, NEW ORDERS RECEIVED AND FOLLOWED, SEE EMAR FOR DETAILS. HOURLY ROUNDING IN PLACE FOR PATIENT SAFETY. CLWR.
--- NOTE | 2019-12-14 09:47 | EKG ---
[place] [address] ELECTROCARDIOGRAM REPORT Name: JONAH COHEN Room: [address] ADM IN .R.#: [id number] Admission: 12/14/19 Attend Phys: Gerry Todd Discharge: Date of : 31 Report #: [id number] THIS REPORT FOR: //name// [facility] Test Date: 2019-12-14 Test Time: 09:39:24 Pat Name: JONAH COHEN Department: Room: [address] Gender: F Butt Maker: : 1930 Requested By: Galen Lambert Order Number: [id number] Lydia MD: Ketan Dangelo Measurements Intervals Hailey Rate: 104 P: 59 VT: 140 QRS: -7 QRSD: 75 T: 57 QT: 365 QTc: 481 Interpretive Statements Sinus tachycardia Consider left atrial enlargement septal infarct, old Compared to ECG 11/23/2018 23:13:22 Sinus rhythm no longer present Myocardial infarct finding still present Electronically Signed On 12-14-2019 9:46:49 PLASTIC DOLLS MOLD FILLER by Ketan Dangelo [email or web address] <ELECTRONICALLY SIGNED> By: Ketan Dangelo MD, [facility] 12/14/1945 Ketan Dangelo MD, [facility] /EPI
[2019-12-14 16:44] VITALS: BP 149/62
[2019-12-14 20:00] VITALS: BP 146/68
[2019-12-14 23:47] VITALS: BP 127/42
--- NOTE | 2019-12-15 05:14 | NUR ---
ASSUMED PATIENT CARE AT 1900. ASSESSMENT COMPLETED CHARTED. PATIENT IS MED-SURG. PATIENT REMOVED OXYGEN CANNULA DURING SHIFT, O2 SATURATION DECREASED TO 86%. OXYGEN CANNULA PLACED BACK IN PATIENT NOSE, HEAD OF BED ELEVATED, RT ON FLOOR NOTIFIED AND RESPONDED, O2 INCREASED, PATIENT O2 SATURATION INCREASED TO 95%-96%. PATIENT ASYMPTOMATIC DURING EVENT. HOURLY ROUNDING FOR PATIENT SAFETY. OXYGEN SATURATION CONTINUES AT 94%-96%. CLWR.
[2019-12-15 05:43] LABS: ABSOLUTE BASOPHILS 0.1 thou/uL (0.0-0.2); ABSOLUTE EOSINOPHILS 0.5 thou/uL (0.0-0.7); ABSOLUTE LYMPHOCYTES 1.1 thou/uL (0.8-5.3); ABSOLUTE NEUTROPHILS 14.3 thou/uL (1.6-8.1); BASOPHILS 0.6 %; EOSINOPHILS 2.9 %; HEMATOCRIT 26.4 % (37.0-47.0); HEMOGLOBIN 8.7 gm/dL (12.0-15.0); MCH 28.4 pg (26.0-34.0); MCHC 33.1 g/dL (28.0-37.0); MCV 85.8 fL (80.0-100.0); MONOCYTES 10.9 %; MPV 9.6 fl. (7.2-11.1); NUCLEATED RBCS 0 /100WBC; PLATELET COUNT* 341 thou/uL (150-400); POLYS 79.6 %; RBC 3.07 mil/uL (4.20-5.00); RDW-CV 14.2 % (10.5-14.5); WBC 17.9 thou/uL (4.0-11.0)
[2019-12-15 05:52] LABS: CREATININE 1.3 mg/dL (0.6-1.3)
[2019-12-15 07:30] VITALS: BP 141/61
[2019-12-15 09:25] VITALS: BP 127/42
--- NOTE | 2019-12-15 15:47 | NUR ---
CM spoke with staff at [facility], Pt is a LTC resident there, they are able to accept Pt back at [place]. CM left for Pt's dtr, awaiting call back.
[2019-12-15 15:53] VITALS: BP 128/61
[2019-12-15 20:00] VITALS: BP 106/45
[2019-12-16] VITALS: BP 103/45
[2019-12-16 05:17] LABS: ABSOLUTE BASOPHILS 0.1 thou/uL (0.0-0.2); ABSOLUTE EOSINOPHILS 0.8 thou/uL (0.0-0.7); ABSOLUTE LYMPHOCYTES 1.1 thou/uL (0.8-5.3); ABSOLUTE MONOCYTES 1.7 thou/uL (0.0-1.2); ABSOLUTE NEUTROPHILS 13.4 thou/uL (1.6-8.1); BASOPHILS 0.5 %; EOSINOPHILS 4.7 %; HEMATOCRIT 23.8 % (37.0-47.0); HEMOGLOBIN 7.8 gm/dL (12.0-15.0); LYMPHOCYTES 6.5 %; MCH 28.3 pg (26.0-34.0); MCHC 32.9 g/dL (28.0-37.0); MPV 9.9 fl. (7.2-11.1); NUCLEATED RBCS 0 /100WBC; PLATELET COUNT* 301 thou/uL (150-400); POLYS 78.3 %; RBC 2.77 mil/uL (4.20-5.00); RDW-CV 14.3 % (10.5-14.5); WBC 17.1 thou/uL (4.0-11.0)
--- NOTE | 2019-12-16 05:40 | NUR ---
ASSUMED CARE OF PATIENT AT APPROX 1930. ALERT TO SELF. PATIENT HAS DEMENTIA IS VERY CONFUSED, SHE DOES NOT KNOW WHY HER HIP HURTS AND CRIES OUT IN PAIN FREQUENTLY. VSS ON ANYWHERE FROM 3-5 LITERS 02 [facility]. CONSERVATIVE PAIN AND ANXIETY MANAGEMENT RELATED TO FREQUENT OXYGEN DESATURATION THROUPUGHT THE SHIFT. PATIENT IS FORGETFUL BUT HAS NOT BEEN IMPULSIVE THIS SHIFT. FALL PRECAUTIONS IN PLACE. CALL LIGHT WITHIN REACH. HOURLY ROUNDS COMPLETED. WILL CONTINUE WITH PLAN OF CARE.
[2019-12-16 06:26] LABS: CALCIUM 7.9 mg/dL (8.5-10.1); CREATININE 1.6 mg/dL (0.6-1.3); POTASSIUM 4.4 mmol/L (3.5-5.1); TOTAL BILIRUBIN 0.3 mg/dL (<0.1-1.0)
[2019-12-16 06:27] LABS: ALBUMIN 2.4 g/dL (3.4-5.0); TOTAL PROTEIN 5.6 g/dL (6.4-8.2)
--- NOTE | 2019-12-16 07:20 | CON ---
[address] [address] CONSULTATION Name: JONAH COHEN Room: [address] IN .R.#: [id number] Admission: 12/14/19 Attend Phys: Gerry Todd Discharge: Date of : 31 Report #: [id number] THIS REPORT FOR: //name// CC: Allen Tse DATE OF SERVICE: 12/15/2019 INFECTIOUS DISEASE CONSULTATION ATTENDING PHYSICIAN: Dr. Pamela Bass. REASON FOR EVALUATION: Complicated urinary tract infection. HISTORY OF PRESENT ILLNESS: Chart reviewed, patient examined. This 89-year-old woman has got dementia who actually fell while in the nursing facility, had an intertrochanteric fracture of left hip, underwent cephalomedullary nailing of the left hip. She is seen postop, unable to get any additional history. As per the initial evaluation, did undergo testing. White count was slightly elevated. Urinalysis did show marked pyuria, greater than 25 white cells and bacteria, greater than 30 bacteria. She was found to be febrile earlier today at 101.1. Chest x-ray showed no acute process. She is empirically placed on antimicrobials, ceftriaxone. ALLERGIES: LISTED TO PENICILLINS, TETRACYCLINE, SULFA, PROTON PUMP INHIBITORS, IODINE, ESOMEPRAZOLE, ESZOPICLONE. CURRENT MEDICATIONS: Include alprazolam, tramadol, hydrocodone, docusate, aspirin, ipratropium, albuterol inhaler, melatonin, ceftriaxone, famotidine, montelukast, furosemide, citalopram, ferrous sulfate, budesonide. PAST MEDICAL HISTORY: History of dementia, chronic anemia, hypertension, reflux, chronic back pain, COPD, cardiomyopathy, history of mitral valve prolapse, previous history of right total hip arthroplasty. SOCIAL HISTORY: Nonsmoker, no ethanol, no illicit drug use. FAMILY HISTORY: Noncontributory. REVIEW OF SYSTEMS: Unobtainable. PHYSICAL EXAMINATION: GENERAL: She barely arouses, again seen postop, she may still be under fog of anesthesia. She is restless. Appears chronically ill. VITAL SIGNS: T-max 101.1, more recently 99.1; pulse 120-130s, respirations 22, blood pressure 128/61, saturations between 87-90% [place] [id number] CONSULTATION Name: JONAH COHEN Room: [address] IN [facility]#: [id number] Admission: 12/14/19 Attend Phys: Gerry Todd Discharge: Date of : 31 Report #: [id number] nasal cannula. NECK: Appears to be supple. LUNGS: Few scattered coarse breath sounds. HEART: Tachycardic, regular. I do not appreciate murmur. ABDOMEN: Soft, nontender, nondistended. There are no peritoneal signs. Left hip has a dressing in place with ice. RECTAL: Deferred. LABORATORY DATA: Initial CBC: White count of 12.5, H and H 9.6 and 29.5, platelets of 392. Electrolytes: Sodium 136, potassium 3.9, chloride 98, bicarbonate was 33, anion gap of 5, BUN and creatinine 26 and 1.4, glucose of 105, lipase of 365. LFTs unremarkable. Albumin of 3, total protein 6.6. Estimated GFR of 35. Troponin level less than 0.06. Urinalysis greater than 25 white cells, greater than 30 bacteria. Chest x-ray, no acute process. ASSESSMENT AND PLAN: Fevers, likely on the basis of multiple issues including a complicated urinary tract infection, agree with empiric antimicrobial therapy, certainly at risk for other nosocomial-related infectious complications. We will give single dose of gentamicin pending those results, given the marginal situation. When she is more lucid, could get additional history. Would likely try to use some incentive spirometry as well, increase activity is allowed per her given situation of the hip fracture. <ELECTRONICALLY SIGNED> By: Mitchel Melendez MD 12/16/19 0720 [id number] [id number] Melendez MD /nt
[2019-12-16 08:00] VITALS: BP 126/57
[2019-12-16 11:49] VITALS: BP 126/50
--- NOTE | 2019-12-16 14:32 | NUR ---
PT VSS, ORIENTED TO SELF ONLY, BASELINE CONFUSION ASSOCIATED TO DEMENTIA. LEFT HIP FX AND REPAIR- ORIF- PATIENT REPORTS "MY LEG HURTS". DRESSING DRY CLEAN AND INTACT. MED SURG STATUS, HOURLY ROUNDING PERFORMED, POSSESSIONS AND CALL LIGHT WITHIN REACH. IV INFILTRATED IN RIGHT FOREARM- WARM COMPRESS APPLIED. NEW ACCESS IN LEFT FOREARM. TRANSFERRED PATIENT TO [facility], GAVE REPORT TO DAGO SERNA, WHO ASSUMED CARE.
[2019-12-16 16:00] VITALS: BP 122/54
[2019-12-16 20:30] VITALS: BP 125/51
[2019-12-17 05:26] LABS: ABSOLUTE BASOPHILS 0.1 thou/uL (0.0-0.2); ABSOLUTE EOSINOPHILS 1.2 thou/uL (0.0-0.7); ABSOLUTE LYMPHOCYTES 1.4 thou/uL (0.8-5.3); ABSOLUTE MONOCYTES 1.6 thou/uL (0.0-1.2); BASOPHILS 0.4 %; EOSINOPHILS 7.2 %; HEMATOCRIT 23.5 % (37.0-47.0); HEMOGLOBIN 7.6 gm/dL (12.0-15.0); LYMPHOCYTES 8.6 %; MCH 27.8 pg (26.0-34.0); MCHC 32.2 g/dL (28.0-37.0); MCV 86.3 fL (80.0-100.0); MPV 10.2 fl. (7.2-11.1); NUCLEATED RBCS 0 /100WBC; PLATELET COUNT* 309 thou/uL (150-400); POLYS 73.8 %; RBC 2.73 mil/uL (4.20-5.00); RDW-CV 14.2 % (10.5-14.5); WBC 16.2 thou/uL (4.0-11.0)
[2019-12-17 05:39] LABS: ALBUMIN 2.2 g/dL (3.4-5.0); CALCIUM 8.1 mg/dL (8.5-10.1); CREATININE 1.6 mg/dL (0.6-1.3); POTASSIUM 4.1 mmol/L (3.5-5.1); TOTAL BILIRUBIN 0.2 mg/dL (<0.1-1.0); TOTAL PROTEIN 6.3 g/dL (6.4-8.2)
--- NOTE | 2019-12-17 05:53 | NUR ---
PATIENT REPORTED PAIN SEVERAL TIMES. I GAVE HER TRAMADOL ONCE, HYDROCODONE ONCE AND FENTANYL ONCE. SHE NEEDED TO KEEP HER NASAL CANNULA IN HER MOUTH THIS WAS MORE COMFORTABLE. WITHOUT IT SHE IMMEDIATELY DROPPED INTO THE LOWER 70'S. SHE WAS ABLE TO REPORT PAIN TO ME AND [facility]NOWLEDGE SHE NEEDED PAIN MEDS. I FED HER SOME DINNER AT THE BEGINNING OF SHIFT AND MADE SURE SHE HAD FREQUENT SIPS OF WATER THROUGH THE NIGHT. HER O2 SAT WAS 94-95% ON 4-5 L. SHE WAS ABLE TO SLEEP MOST OF THE NIGHT. I ATTEMPTED TO READJUST HER SHE DID NOT WANT TO BE MOVED AT ALL. HOURLY ROUNDS MADE. PAIN MANAGEMENT WILL BE THE PLAN. WILL CONTINUE TO FOLLOW PLAN OF CARE.
[2019-12-17 08:15] VITALS: BP 129/51
[2019-12-17 15:28] VITALS: BP 121/46
--- NOTE | 2019-12-17 16:54 | NUR ---
PATIENT ALERT AND ORIENTED TO SELF AND SITUATION. FORGETFUL AND CONFUSED AT TIMES. VITAL SIGNS STABLE ON 5L O2 NASAL CANULA. AFEBRILE. IV PATENT AND SALINE LOCKED. ANTIBIOTICS GIVEN PER JAN. DENIES NAUSEA AT THIS TIME. PAIN BEING MANAGED WITH PO AND IV MEDICATION. DRESSING TO LEFT HIP CLEAN/DRY/INTACT. FALL PRECAUTIONS IN PLACE AND BED ALARM ON. HOURLY ROUNDS MAINTAINED THROUGHOUT THE SHIFT. CALL LIGHT WITHIN REACH. NURSING WILL CONTINUE TO MONITOR.
[2019-12-17 20:00] VITALS: BP 134/50
[2019-12-17 23:30] VITALS: BP 103/40
[2019-12-18 04:00] VITALS: BP 104/40
[2019-12-18 04:41] LABS: ABSOLUTE BASOPHILS 0.1 thou/uL (0.0-0.2); ABSOLUTE EOSINOPHILS 1.3 thou/uL (0.0-0.7); ABSOLUTE LYMPHOCYTES 1.1 thou/uL (0.8-5.3); ABSOLUTE MONOCYTES 1.4 thou/uL (0.0-1.2); ABSOLUTE NEUTROPHILS 11.2 thou/uL (1.6-8.1); BASOPHILS 0.7 %; EOSINOPHILS 8.4 %; HEMATOCRIT 22.4 % (37.0-47.0); HEMOGLOBIN 7.3 gm/dL (12.0-15.0); LYMPHOCYTES 7.3 %; MCH 28.2 pg (26.0-34.0); MCHC 32.7 g/dL (28.0-37.0); MCV 86.1 fL (80.0-100.0); MONOCYTES 9.1 %; NUCLEATED RBCS 0 /100WBC; PLATELET COUNT* 327 thou/uL (150-400); POLYS 74.5 %; RBC 2.61 mil/uL (4.20-5.00); WBC 15.1 thou/uL (4.0-11.0)
[2019-12-18 05:06] LABS: ALBUMIN 2.1 g/dL (3.4-5.0); CALCIUM 8.2 mg/dL (8.5-10.1); POTASSIUM 4.5 mmol/L (3.5-5.1); TOTAL BILIRUBIN 0.2 mg/dL (<0.1-1.0); TOTAL PROTEIN 6.3 g/dL (6.4-8.2)
--- NOTE | 2019-12-18 07:30 | NUR ---
Alert and oriented x 1 and she has slept most of the shift. O2 sat has been most at 92-94% ON 5l n/c. She had pain meds x 2 crushed with applesauce.
[2019-12-18 15:48] VITALS: BP 134/56
--- NOTE | 2019-12-18 17:12 | NUR ---
PATIENT ALERT AND ORIENTED TO SELF. VITAL SIGNS STABLE ON 5L O2 NASAL CANULA. CONTINUOUS PULSE OX IN PLACE. AFEBRILE. IV PATENT WITH FLUIDS INFUSING. AFEBRILE. PAIN BEIGN MANAGED WITH PO MEDICATION. ROA PATENT AND DRAINING. DRESSING TO LEFT HIP DRY AND INTACT. FALL PRECAUTIONS IN PLACE AND BED ALARM ON. HOURLY ROUNDS MAINTAINED THROUGHOUT THE SHIFT. CALL LIGHT WITHIN REACH. NURSING WILL CONTINUE TO MONITOR.
[2019-12-18 20:00] VITALS: BP 145/60
[2019-12-19 04:37] LABS: ABSOLUTE BASOPHILS 0.1 thou/uL (0.0-0.2); ABSOLUTE EOSINOPHILS 0.7 thou/uL (0.0-0.7); ABSOLUTE LYMPHOCYTES 1.1 thou/uL (0.8-5.3); ABSOLUTE MONOCYTES 1.3 thou/uL (0.0-1.2); ABSOLUTE NEUTROPHILS 9.5 thou/uL (1.6-8.1); BASOPHILS 0.5 %; EOSINOPHILS 5.9 %; HEMATOCRIT 20.3 % (37.0-47.0); LYMPHOCYTES 8.9 %; MCH 28.1 pg (26.0-34.0); MCHC 32.8 g/dL (28.0-37.0); MCV 85.7 fL (80.0-100.0); MPV 9.9 fl. (7.2-11.1); NUCLEATED RBCS 0 /100WBC; PLATELET COUNT* 344 thou/uL (150-400); POLYS 74.7 %; RBC 2.36 mil/uL (4.20-5.00); RDW-CV 14.9 % (10.5-14.5); WBC 12.7 thou/uL (4.0-11.0)
[2019-12-19 04:43] LABS: ALBUMIN 1.9 g/dL (3.4-5.0); CALCIUM 7.9 mg/dL (8.5-10.1); CREATININE 1.8 mg/dL (0.6-1.3); POTASSIUM 4.5 mmol/L (3.5-5.1); TOTAL BILIRUBIN 0.2 mg/dL (<0.1-1.0); TOTAL PROTEIN 6.1 g/dL (6.4-8.2)
[2019-12-19 04:49] LABS: HEMOGLOBIN 6.7 gm/dL (12.0-15.0)
[2019-12-19 04:54] LABS: PREALBUMIN 12.1 mg/dL (18.0-35.7)
--- NOTE | 2019-12-19 06:36 | NUR ---
More alert and talking with us this shift. L hip mepilex dressing dry and intact. She has a critical hemoglobin this am at 6.7, Dr Mendez was notified and she gave orders. Havenhas had pain meds x 2 this shift.
[2019-12-19 08:45] VITALS: BP 117/52; BP 120/56; BP 143/65; BP 145/65; BP 151/72
--- NOTE | 2019-12-19 14:05 | NUR ---
I have reviewed the documentation by DENISA ALBERTO from 12/19/19 to 12/19/19 and I concur with it. COLLETTE PHILLIPS
[2019-12-19 16:59] VITALS: BP 136/64
--- NOTE | 2019-12-19 19:00 | NUR ---
PATIENT ORIENTED TO SELF ONLY. IRRITABLE AT TIMES. 1 UNIT PRBCs GIVEN THIS AM. O2 5L/NC THIS AM, ADJUSTED UP TO 7L/NC THIS AFTERNOON WITH SATS DROPPING DOWN TO 84% AT TIMES, PATIENT NOTED HOLDING HER BREATH WHILE SLEEPING OCCA. O2 DOWN TO 5L/NC AT SHIFT CHANGE, 92-95%. SEE MAR. REPOSITIONED IN BED TOLERATED. CALL LIGHT IN REACH. ICE TO HIP. SCDs ON BLE. IV FLUIDS INFUSING W/O DIFF. ~TJRN
[2019-12-19 20:20] VITALS: BP 133/60
[2019-12-20 03:50] LABS: ABSOLUTE EOSINOPHILS 1.4 thou/uL (0.0-0.7); ABSOLUTE LYMPHOCYTES 1.7 thou/uL (0.8-5.3); ABSOLUTE MONOCYTES 1.4 thou/uL (0.0-1.2); ABSOLUTE NEUTROPHILS 10.8 thou/uL (1.6-8.1); BASOPHILS 0.3 %; EOSINOPHILS 8.8 %; HEMATOCRIT 24.9 % (37.0-47.0); HEMOGLOBIN 8.3 gm/dL (12.0-15.0); LYMPHOCYTES 11.1 %; MCH 28.1 pg (26.0-34.0); MCHC 33.1 g/dL (28.0-37.0); MCV 84.9 fL (80.0-100.0); MONOCYTES 9.4 %; MPV 9.7 fl. (7.2-11.1); NUCLEATED RBCS 0 /100WBC; PLATELET COUNT* 363 thou/uL (150-400); POLYS 70.4 %; RBC 2.94 mil/uL (4.20-5.00); WBC 15.4 thou/uL (4.0-11.0)
[2019-12-20 04:01] LABS: ALBUMIN 1.9 g/dL (3.4-5.0); CALCIUM 8.3 mg/dL (8.5-10.1); CREATININE 1.5 mg/dL (0.6-1.3); POTASSIUM 4.5 mmol/L (3.5-5.1); TOTAL BILIRUBIN 0.3 mg/dL (<0.1-1.0); TOTAL PROTEIN 6.3 g/dL (6.4-8.2)
--- NOTE | 2019-12-20 05:36 | NUR ---
PATIENT HAS RESTED WELL THROUGHOUT THE NIGHT. VSS ON 5L 02 VIA NASAL CANNULA. PATIENT CONFUSED BUT HAS HISTORY OF DEMENTIA. DRESSING TO LEFT HIP IS C/D/I. ROA TO DEPENDENT DRAINAGE WITH YELLOW URINE OUTPUT. IV IN LEFT AC-NS @ 50ML/HR. PATIENT TAKES MEDICATIONS CRUSHED WITH APPLESAUCE. HOURLY ROUNDS MADE. FALL PRECAUTIONS IN PLACE. HOURLY ROUNDS MADE. WILL CONTINUE WITH PLAN OF CARE AND NURSING TO MONITOR.
[2019-12-20 06:47] LABS: URINE BILIRUBIN NEGATIVE (Negative); URINE BLOOD 3+ (Negative); URINE CLARITY CLEAR; URINE COLOR YELLOW; URINE GLUCOSE-RANDOM NEGATIVE (Negative); URINE KETONES NEGATIVE (Negative); URINE LEUKOCYTES-REFLEX 1+ (Negative); URINE NITRITE-REFLEX NEGATIVE (Negative); URINE PROTEIN 2+ (Negative); URINE UROBILINOGEN 0.2 E.U./dl (0.2-1.0)
[2019-12-20 06:57] LABS: SQUAMOUS NONE SEEN /LPF (0-3); URINE WBC-REFLEX 6-15 Few /HPF (0-5)
[2019-12-20 06:58] LABS: BACTERIA-REFLEX 1-9 Few /HPF (None Seen); CRYSTALS None Seen /LPF (None Seen); FINE GRANULAR CASTS 0-3 Few /LPF (None Seen); HYALINE CASTS 0-3 Few /LPF (None Seen); MUCUS 0-3 Light strn/LPF (None Seen); URINE RBC >20 Many /HPF (0-2)
[2019-12-20 08:00] VITALS: BP 162/67
[2019-12-20 08:13] LABS: BE 1.8 mmol/L (-2 to +3); PCO2 46.3 mmHg (35.0-45.0); PO2 75.3 mmHg (75.0-100.0); pH 7.387 (7.340-7.450)
[2019-12-20 11:39] VITALS: BP 155/71
--- NOTE | 2019-12-20 14:02 | NUR ---
I have reviewed the documentation by DENISA ALBERTO from 12/20/19 to 12/20/19 and I concur with it. COLLETTE PHILLIPS
--- NOTE | 2019-12-20 16:01 | NUR ---
ASSUMED CARE OF PT AROUND 0730 THIS AM. REFER TO ASSESSMENT. PT APPEARED TO BE IN RESPIRATORY DISTRESS ON ASSESSMENT. PHYSICIAN NOTIFIED AND STAT CHEST XRAY AND ABG ORDERED. PT GIVEN IV LASIX. RT AT BEDSIDE. DISCUSSED WITH SPEECH THERAPY THAT PT IS SUSPECTED TO BE ASPIRATING ORAL INTAKE. ST TO REASSESS SWALLOW FUNCTION. PT UP TO CHAIR FOR MEALS AND FED BY STAFF FOR SAFETY THIS SHIFT. NO OTHER CONCERNS AT THIS TIME. CLWR. WCTM.
--- NOTE | 2019-12-20 16:03 | NUR ---
I have reviewed the documentation by DENISA ALBERTO from 12/20/19 to 12/20/19 and I concur with it. COLLETTE PHILLIPS
--- NOTE | 2019-12-20 16:18 | NUR ---
OCCUPATIONAL THERAPY NOTIFIED THIS NURSE THAT PT'S ERICK HOSE HAD BUNCHED AROUND THE KNEE BILATERALLY. ERICK HOSE REMOVED AND NEW AREA'S OF EXCORIATION NOTED ABOVE THE KNEES FROM THE PRESSURE OF THE ERICK HOSE.
[2019-12-20 17:09] VITALS: BP 183/74
[2019-12-20 21:30] VITALS: BP 129/74
--- NOTE | 2019-12-21 06:55 | NUR ---
PATIENT HAS RESTED WELL THROUGHOUT MOST OF THE NIGHT. VSS ON 7L 02 VIA NASAL CANNULA. PATIENT CONFUSED BUT HAS HISTORY OF DEMENTIA. MEDICATIONS GIVEN ORDERED AND CHARTED. PATIENT TAKES PILL CRUSHED WITH APPLESAUCE. ASPIRATION PRECAUTIONS IN PLACE. DRESSING TO LEFT HIP IS C/D/I AND SCD' IN PLACE. IV IN LEFT AC-SL. ROA TO DEPENDENT DRAINAGE WITH DARK YELLOW URINE OUTPUT. FALL PRECAUTIONS IN PLACE AND HOURLY ROUNDS MADE. WILL CONTINUE WITH PLAN OF CARE AND NURSING TO MONITOR.
[2019-12-21 08:00] VITALS: BP 169/68
[2019-12-21 08:56] LABS: ALBUMIN 2.2 g/dL (3.4-5.0); CALCIUM 8.3 mg/dL (8.5-10.1); CREATININE 1.4 mg/dL (0.6-1.3); POTASSIUM 4.5 mmol/L (3.5-5.1); TOTAL BILIRUBIN 0.3 mg/dL (<0.1-1.0); TOTAL PROTEIN 6.1 g/dL (6.4-8.2)
[2019-12-21 12:24] LABS: ABSOLUTE BASOPHILS 0.1 thou/uL (0.0-0.2); ABSOLUTE EOSINOPHILS 1.4 thou/uL (0.0-0.7); ABSOLUTE LYMPHOCYTES 1.6 thou/uL (0.8-5.3); ABSOLUTE MONOCYTES 1.3 thou/uL (0.0-1.2); ABSOLUTE NEUTROPHILS 12.1 thou/uL (1.6-8.1); BASOPHILS 0.4 %; EOSINOPHILS 8.6 %; HEMATOCRIT 26.3 % (37.0-47.0); HEMOGLOBIN 8.5 gm/dL (12.0-15.0); LYMPHOCYTES 9.7 %; MCH 27.7 pg (26.0-34.0); MCHC 32.4 g/dL (28.0-37.0); MCV 85.2 fL (80.0-100.0); MONOCYTES 7.7 %; MPV 9.4 fl. (7.2-11.1); NUCLEATED RBCS 0 /100WBC; PLATELET COUNT* 434 thou/uL (150-400); POLYS 73.6 %; RBC 3.09 mil/uL (4.20-5.00); RDW-CV 14.6 % (10.5-14.5); WBC 16.5 thou/uL (4.0-11.0)
--- NOTE | 2019-12-21 14:56 | NUR ---
Nutrition: Pt seen for LOS. Sound asleep at visit. Wt today is recorded as 140#, but true wt is 121#. BMI WNL. Pureed diet, appetite fair. Alb 2.2, prealb 13.3, WBC 16.5. Vanc. H/o dementia. Aspiration precautions. Pt's lunch tray was untouched at time of visit. Did not speak with pt. Consider at mild risk. GOALS: good po intake, no wt loss. RD will order Ensure Pudding for added kcal intake.
--- NOTE | 2019-12-21 16:25 | NUR ---
PT A&OxSELF. IV PATENT, USED FOR ABX. UP 2 WITH MAX ASSIST. 50% WB. EATING ABOUT 30% OF MEALS. WORKING WITH PT AND OT. DRESSING C/D/I. ICE, SCDs AND TEDs IN PLACE. FALL PRECAUTIONS IN PLACE. CALL LIGHT WITHIN REACH. WILL CONTINUE TO MONITOR.
[2019-12-21 16:39] VITALS: BP 145/62
[2019-12-21 20:20] VITALS: BP 163/72
[2019-12-22 04:03] LABS: ABSOLUTE BASOPHILS 0.1 thou/uL (0.0-0.2); ABSOLUTE EOSINOPHILS 1.6 thou/uL (0.0-0.7); ABSOLUTE LYMPHOCYTES 1.6 thou/uL (0.8-5.3); ABSOLUTE MONOCYTES 1.5 thou/uL (0.0-1.2); ABSOLUTE NEUTROPHILS 11.7 thou/uL (1.6-8.1); BASOPHILS 0.5 %; EOSINOPHILS 9.8 %; HEMATOCRIT 27.5 % (37.0-47.0); HEMOGLOBIN 8.8 gm/dL (12.0-15.0); LYMPHOCYTES 9.4 %; MCH 27.2 pg (26.0-34.0); MCV 85.1 fL (80.0-100.0); MPV 9.7 fl. (7.2-11.1); NUCLEATED RBCS 0 /100WBC; PLATELET COUNT* 470 thou/uL (150-400); POLYS 71.3 %; RBC 3.23 mil/uL (4.20-5.00); RDW-CV 14.5 % (10.5-14.5); WBC 16.4 thou/uL (4.0-11.0)
[2019-12-22 04:37] LABS: CALCIUM 8.8 mg/dL (8.5-10.1); CREATININE 1.4 mg/dL (0.6-1.3); POTASSIUM 4.2 mmol/L (3.5-5.1)
--- NOTE | 2019-12-22 05:20 | NUR ---
PT ORIENTED TO SELF, FORGETFUL. PT ON 4-5L BY AALIYAH. MEDS CRUSHED AND GIVEN WITH APPLE SAUCE. TYLENOL GIVEN FOR PAIN. HAD BM THIS SHIFT. TOLERATING BREATHING TREATMENT. HOURLY ROUNDING, TURNS COMPLETED.
[2019-12-22 07:48] VITALS: BP 151/71
[2019-12-22] MEDS ORDERED: ASPIRIN325 PO (12:53)
--- NOTE | 2019-12-22 13:04 | OP ---
[facility] [address] [place] [address] OPERATIVE REPORT Name: JONAH COHEN Room: [address] IN ..#: [id number] Admission: 12/14/19 Attend Phys: Gerry Todd Discharge: Date of : 31 Report #: [id number] THIS REPORT FOR: //name// CC: Allen Tse DICTATED BY: Fredy Conrad DO DATE OF SERVICE: 12/15/2019 PREOPERATIVE DIAGNOSIS: Intertrochanteric fracture of the left hip. POSTOPERATIVE DIAGNOSIS: Intertrochanteric fracture of the left hip. OPERATION PERFORMED: Cephalomedullary nailing of a left hip intertrochanteric fracture. IMPLANTS USED: A [place] gamma nail using a short 170 mm in length gamma nail with a 130-degree neck shaft angle using a 90 mm lag screw and a 32.5 mm distal interlocking screw. ESTIMATED BLOOD LOSS: 50 mL. COMPLICATIONS: None. DRAINS: None. SPECIMENS: None. ANESTHESIA: Performed under general anesthesia with endotracheal intubation. DESCRIPTION OF PROCEDURE: Following induction of anesthesia, the patient was placed on the fracture [place] table in supine positioning. All bony prominences were carefully padded and protected. The right leg was placed in a stirrup leg [place]. The left leg was placed in traction, and reduction was achieved under fluoroscopic guidance of the left intertrochanteric hip fracture. Anatomic reduction was achieved. The patient was then prepped and draped in sterile fashion, and she was given prophylactic 1 gram of Ancef prior to any incision. A longitudinal incision was made approximately 3 cm in length at the tip of the greater trochanter extending proximally. Dissection was made down through subcutaneous tissue, fascia alicia, and the tip of the greater trochanter was palpated. Following this, a 3.2 mm guide emily was passed through the greater trochanter and visualized in AP and lateral planes to be in appropriate positioning and noted to be in good alignment. Following this, the guide emily was advanced and soft tissue protector sleeve was placed over the guide emily. Then, a 15.5 mm opening conical reamer was used [place] [id number] OPERATIVE REPORT Name: JONAH COHEN Room: [address] IN [facility]#: [id number] Admission: 12/14/19 Attend Phys: Gerry Todd Discharge: Date of : 31 Report #: [id number] trochanter and was visualized under fluoroscopic guidance to be in appropriate position and not to perforate any of the canal. Following this, the reamer was removed and a 12 mm reamer was used and reamed down through the isthmus of the guide emily with good chatter noted. Following this, the cephalomedullary nail was placed over the ball-tipped guidewire that was inserted down to the knee prior to this. The nail was appropriately positioned fluoroscopically and utilizing the proximal guide following this, the femoral head and neck were drilled with the guide pin into the subchondral bone followed by reaming using the #2 size reamer. Following this, the reamer was removed and the measuring device was noted. We measured it approximately 90 mm. A 90 mm lag screw was then appropriately inserted and positioned. No compression was performed; however, a set screw was placed following the placement of the lag screw. We then visualized the fracture. Again, the fracture was noted to be in good alignment and hardware was in good position following this. Next, we went down to the distal interlocking screw. The triple guide sleeve was used to make a point on the skin. Following this, a sharp dissection was carried out down to the bone. Following this, the triple sleeve was placed on to the bone and visualized under fluoroscopic guidance to be in good positioning. The [place] sleeve was removed and drilled through the inner cortex and outer cortex. Following this, the measurement was obtained. A 32.5 mm interlocking screw was then placed and under fluoroscopic guidance, we showed good cortical apposition of the screw. The position of the screw was verified in AP and lateral planes. Permanent radiographs were obtained of the nail and fracture. We noted again good anatomic reduction. The wound was then irrigated copiously with sterile saline solution. The fascia was repaired with 0 Vicryl proximally and in [id number] fashion. The subcutaneous tissue was closed with 2-0 Vicryl, both proximally and in the two distal incisions. Skin clifford were then used and the skin was then cleaned with saline and dried, and then two Mepilex dressings were placed to cover the wounds in a sterile fashion. The patient was sent to the recovery room in good condition. <ELECTRONICALLY SIGNED> By: Giorig Montanez DO 12/22/19 1304 1218 [id number] Montanez DO /nt
[2019-12-22 13:11] VITALS: BP 151/71
[2019-12-22] MEDS ORDERED: TRAMADOL 50 MG50 MG PO (13:26)
[2019-12-22] MEDS ORDERED: LEVAQUIN 500 M500 M4 PO (13:27)
--- NOTE | 2019-12-22 15:24 | NUR ---
Following for d/c planning needs. Dr Melendez is changing antibiotic to oral and is agreeable with plans for pt to return to [facility] today. Received order from physician to arrange d/c back to facility today. Pt will be going to SNF on d/c. Spoke with online program coordinator at facility and faxed orders. Chart copied. Their w/c van will transport between [phone]. Called pt's daughter and she is agreeable with plans for pt to return to [facility] today via w/c van. No other needs identified. [facility] [phone]
[2019-12-22 16:00] VITALS: BP 148/68
--- NOTE | 2019-12-22 19:00 | NUR ---
PT DISCHARGED TO [facility] BY WHEELCHAIR VAN. REPORT CALLED. DRESSING C/D/I. IV OUT. PAPER SCRIPTS SENT. PT STABLE.
== END 2019-12-22 19:03 | DRG 480 ==
LOC: M.ERS 23:34 → M.2W 12-14 01:10 → M.TBA-ER 12-14 01:10 → M.2W 12-14 02:20 → M.ORTHSURG 12-16 14:14
PROVIDERS: Emergency Medicine; Internal Medicine; Orthopaedic Surgery; Specialist; ADMIT Internal Medicine
PROC: 0QS706Z Reposition Left Upper Femur with Intramedullary Internal Fixation Device, Open Approach (ICD-10-PCS; principal; 2019-12-15)
PROC: 30233N1 Transfusion of Nonautologous Red Blood Cells into Peripheral Vein, Percutaneous Approach (ICD-10-PCS; 2019-12-19)
DX: S72.145A Nondisplaced intertrochanteric fracture of left femur, initial encounter for closed fracture (principal); G93.41 Metabolic encephalopathy; J69.0 Pneumonitis due to inhalation of food and vomit; J96.90 Respiratory failure, unspecified, unspecified whether with hypoxia or hypercapnia; D62 Acute posthemorrhagic anemia; I42.9 Cardiomyopathy, unspecified; N39.0 Urinary tract infection, site not specified; W06.XXXA Fall from bed, initial encounter; I34.1 Nonrheumatic mitral (valve) prolapse; E78.00 Pure hypercholesterolemia, unspecified; Z96.641 Presence of right artificial hip joint; J44.9 Chronic obstructive pulmonary disease, unspecified; F03.90 Unspecified dementia, unspecified severity, without behavioral disturbance, psychotic disturbance, mood disturbance, and anxiety; I10 Essential (primary) hypertension; K21.9 Gastro-esophageal reflux disease without esophagitis; D53.9 Nutritional anemia, unspecified; B96.20 Unspecified Escherichia coli [E. coli] as the cause of diseases classified elsewhere; Y95 Nosocomial condition; E55.9 Vitamin D deficiency, unspecified; E86.0 Dehydration; M54.9 Dorsalgia, unspecified; G89.29 Other chronic pain; Z87.01 Personal history of pneumonia (recurrent); Z87.440 Personal history of urinary (tract) infections; Z88.0 Allergy status to penicillin; Z88.2 Allergy status to sulfonamides; Z88.8 Allergy status to other drugs, medicaments and biological substances; Y92.89 Other specified places as the place of occurrence of the external cause; Y93.89 Activity, other specified; Y99.8 Other external cause status; Z88.1 Allergy status to other antibiotic agents; Z91.041 Radiographic dye allergy status; Z87.891 Personal history of nicotine dependence; Z79.82 Long term (current) use of aspirin; Z79.899 Other long term (current) drug therapy

== ENCOUNTER → 2020-01-03 | Outpatient (CLI) | payer MEDICARE, MEDICAID ==
[~2020-01-03] MED LIST changes: +ASPIRIN325 PO; +IPRAT-ALBUT 0.5-3 ML INH; +KIDS VITAMIN400 UNIT PO; +LEVAQUIN 500 M500 M4 PO; +ZOFRAN4 MG PO
== END ==
LOC: M.WC 08:32
DX: L89.620 Pressure ulcer of left heel, unstageable (principal); L97.521 Non-pressure chronic ulcer of other part of left foot limited to breakdown of skin; L89.892 Pressure ulcer of other site, stage 2; N18.2 Chronic kidney disease, stage 2 (mild); J44.9 Chronic obstructive pulmonary disease, unspecified; F03.90 Unspecified dementia, unspecified severity, without behavioral disturbance, psychotic disturbance, mood disturbance, and anxiety; Z96.641 Presence of right artificial hip joint; Z87.891 Personal history of nicotine dependence; Z79.82 Long term (current) use of aspirin

== ENCOUNTER → 2020-01-10 | Outpatient (CLI) | payer MEDICARE, MEDICAID | LOC: M.WC 04:34 | DX: L89.620 Pressure ulcer of left heel, unstageable (principal); L89.892 Pressure ulcer of other site, stage 2; L97.522 Non-pressure chronic ulcer of other part of left foot with fat layer exposed; J44.9 Chronic obstructive pulmonary disease, unspecified; F03.90 Unspecified dementia, unspecified severity, without behavioral disturbance, psychotic disturbance, mood disturbance, and anxiety; Z87.891 Personal history of nicotine dependence ==

== ENCOUNTER → 2020-01-17 | Outpatient (CLI) | payer MEDICARE, MEDICAID | LOC: M.WC 03:56 | DX: I70.244 Atherosclerosis of native arteries of left leg with ulceration of heel and midfoot (principal); L89.620 Pressure ulcer of left heel, unstageable; L97.421 Non-pressure chronic ulcer of left heel and midfoot limited to breakdown of skin; L89.892 Pressure ulcer of other site, stage 2; L97.521 Non-pressure chronic ulcer of other part of left foot limited to breakdown of skin; J44.9 Chronic obstructive pulmonary disease, unspecified; F03.90 Unspecified dementia, unspecified severity, without behavioral disturbance, psychotic disturbance, mood disturbance, and anxiety; Z87.891 Personal history of nicotine dependence ==

== ENCOUNTER → 2020-01-31 | Outpatient (CLI) | payer MEDICARE, MEDICAID | LOC: M.WC 04:37 | DX: I70.244 Atherosclerosis of native arteries of left leg with ulceration of heel and midfoot (principal); L89.620 Pressure ulcer of left heel, unstageable; L97.421 Non-pressure chronic ulcer of left heel and midfoot limited to breakdown of skin; L89.892 Pressure ulcer of other site, stage 2; L97.521 Non-pressure chronic ulcer of other part of left foot limited to breakdown of skin; L89.520 Pressure ulcer of left ankle, unstageable; J44.9 Chronic obstructive pulmonary disease, unspecified; F03.90 Unspecified dementia, unspecified severity, without behavioral disturbance, psychotic disturbance, mood disturbance, and anxiety; Z87.891 Personal history of nicotine dependence; Z96.649 Presence of unspecified artificial hip joint ==

== ENCOUNTER 2020-02-28 08:49 | Inpatient (IN) | payer MEDICARE, MEDICAID ==
[~2020-02-28] VITALS: Ht 157.5 cm; Wt 45.4 kg
--- NOTE | ~2020-02-28 | OP ---
[address] [address] OPERATIVE REPORT Name: JONAH COHEN Room: [address] IN M.R.#: [id number] Admission: 02/28/20 Attend Phys: Charlene Silva MD Discharge: Date of : 31 Report #: [id number] THIS REPORT FOR: //name// cc: Allen Sanders MD, James MD ~ THIS REPORT FOR: //name// CC: Allen Silva DATE OF SERVICE: 03/01/2020 PREOPERATIVE DIAGNOSIS: Severe peripheral vascular disease, left lower extremity. POSTOPERATIVE DIAGNOSIS: Severe peripheral vascular disease, left lower extremity. PROCEDURES: 1. Ultrasound-guided access to the right common femoral artery and access aortoiliofemoral angiogram. 2. Third order selective left lower extremity angiogram. 3. Left superficial femoral, popliteal artery angioplasty. 4. Mynx closure device, right common femoral artery. SURGEON: Timothy Roberts DO SOLE BUFFER: None. ANESTHESIA: Sedation with local. ESTIMATED BLOOD LOSS: Minimal. FINDINGS: Ultrasound demonstrated the right common femoral artery to have some moderately severe plaque, was able to access the proximal common femoral artery. Initial aortogram demonstrated patent bilateral renal arteries, patent infrarenal aorta, bilateral common, internal and external iliac arteries with some moderate atherosclerotic disease. Patent left common femoral artery with some mild atherosclerotic disease, maybe 40% stenosis. Patent deep femoral artery really without significant stenosis. She had multiple tandem high-grade lesions within the left superficial femoral artery and the proximal popliteal artery. She did have 3-vessel runoff into the foot, primarily through the posterior tibial artery with just some [id number] diffuse disease. Following angioplasty of the superficial femoral and popliteal artery with prolonged inflations with a 5 mm balloon, responded quite [place] [address] OPERATIVE REPORT Name: JONAH COHEN Room: [address] IN [facility]#: [id number] Admission: 02/28/20 Attend Phys: Charlene Silva MD Discharge: Date of : 31 Report #: [id number] residual stenosis less than 10% with much improved brisk flow into the 3-vessel runoff into the foot. CLINICAL HISTORY: The patient is an 89-year-old woman with known severe peripheral vascular disease. She has a nonhealing wound of the left lower extremity. Recommended proceeding with angiogram for relief of ischemic rest pain and wound healing. DESCRIPTION OF PROCEDURE: After informed consent was obtained, the patient was taken to the angio suite, placed on the angio bed in the supine position. The right groin was prepped and draped in the usual sterile fashion. Full timeout was performed identifying correct patient and procedure. Next, she was administered moderate sedation by the nurse at my discretion. This was for a total of 60 minutes. Using ultrasound guidance, the right common femoral artery was identified. Skin and subcutaneous tissues were anesthetized with lidocaine anesthetic. It was accessed with a micropuncture needle. The ultrasound images were preserved. Using Seldinger technique, a microwire and microsheath were placed, ultimately upsized to a 6-[place] sheath. I placed a flush catheter over a Bentson wire and the infrarenal aorta and performed aortoiliofemoral angiogram with the findings noted above. Obtained up and over access across the bifurcation, positioned catheter in left common femoral artery, performed the selective left lower extremity angiogram with the findings noted above as well. At this point, I administered 5000 units of intravenous heparin and exchanged out for a 6-[place] up and over sheath over the Glidewire Advantage. Using a combination of Glidewire Advantage and seeker catheter, I was able to navigate across the superficial femoral, popliteal artery lesions. Followup imaging confirmed intraluminal position within the distal popliteal artery. I placed a wire and then exchanged out for a 5 mm Ultraverse balloon. Serially angioplastied the left superficial femoral, proximal popliteal artery with a 5 mm balloon with prolonged inflations. Completion imaging demonstrated an excellent result. There was minimal residual stenosis with brisk flow through the SFA and popliteal into the 3-vessel runoff, again it was primarily through the posterior tibial. Satisfied with the result, the wire and sheath were backed in the right external iliac artery, performed an angiogram through the sheath to confirm access position. I partially reversed the heparin with 40 mg of protamine. I deployed a 6-[place] Mynx closure device in standard fashion. Manual pressure was held for about 10 minutes. Once hemostasis was ensured, sterile dressing was applied. All counts were reported as correct x 2. She tolerated the procedure well and was transferred back to room in stable condition. By: [id number] Roberts DO /jose daniel
--- NOTE | ~2020-02-28 | PROC ---
[address] [address] PROCEDURE REPORT Name: JONAH COHEN Room: [address] IN M.R.#: [id number] Admission: 02/28/20 Attend Phys: Charlene Silva MD Discharge: Date of : 31 Report #: [id number] THIS REPORT FOR: //name// cc: Allen Sanders MD, James MD ~ THIS REPORT FOR: //name// For GI report, please see the Provation report in Perceptive 7 content. By: [id number] Records Staff MEGHNA /SELIN
[~2020-02-28 08:49] MED LIST changes: +KIDS VITAMIN D10 MCG PO; -KIDS VITAMIN400 UNIT PO
[2020-02-28 09:05] VITALS: BP 140/56
[2020-02-28] MEDS ORDERED: VITAMIN C500 M2 PO (09:14)
[2020-02-28] MEDS ORDERED: VITAMIN D3 COM1 EACH PO (09:15)
[2020-02-28] MEDS ORDERED: MUCINEX600 MG PO (09:16)
[2020-02-28] MEDS ORDERED: DULCOLAX STOOL100 M1 PO (09:17)
[2020-02-28] MEDS ORDERED: MIRALAX119 GM PO (09:17)
[2020-02-28] MEDS ORDERED: MILK OF MA400 MG/5 M PO (09:17)
[2020-02-28] MEDS ORDERED: LINEZOLID600 MG PO (09:18)
[2020-02-28] MEDS ORDERED: NORCO 5-325 TA1 EAC1 PO (09:19)
[2020-02-28] MEDS ORDERED: JUVEN PACKET1 EAC1 PO (09:20)
[2020-02-28 09:24] LABS: ABSOLUTE BASOPHILS 0.1 thou/uL (0.0-0.2); ABSOLUTE EOSINOPHILS 0.1 thou/uL (0.0-0.7); ABSOLUTE LYMPHOCYTES 1.2 thou/uL (0.8-5.3); ABSOLUTE MONOCYTES 0.8 thou/uL (0.0-1.2); ABSOLUTE NEUTROPHILS 9.5 thou/uL (1.6-8.1); BASOPHILS 0.7 %; EOSINOPHILS 1.1 %; HEMATOCRIT 31.5 % (37.0-47.0); HEMOGLOBIN 10.2 gm/dL (12.0-15.0); LYMPHOCYTES 10.6 %; MCH 26.6 pg (26.0-34.0); MCHC 32.5 g/dL (28.0-37.0); MCV 82.1 fL (80.0-100.0); MONOCYTES 6.7 %; MPV 9.3 fl. (7.2-11.1); NUCLEATED RBCS 0 /100WBC; PLATELET COUNT* 412 thou/uL (150-400); POLYS 80.9 %; RBC 3.84 mil/uL (4.20-5.00); RDW-CV 17.1 % (10.5-14.5); WBC 11.7 thou/uL (4.0-11.0)
[2020-02-28 09:33] LABS: CALCIUM 8.9 mg/dL (8.5-10.1); CREATININE 1.2 mg/dL (0.6-1.3); POTASSIUM 3.8 mmol/L (3.5-5.1)
[2020-02-28 09:35] LABS: PROTIME 10.4 Seconds (9.20-11.50)
[2020-02-28 09:47] LABS: ALBUMIN 2.5 g/dL (3.4-5.0); TOTAL BILIRUBIN 0.2 mg/dL (<0.1-1.0); TOTAL PROTEIN 7.1 g/dL (6.4-8.2)
[2020-02-28 13:09] VITALS: BP 158/71
[2020-02-28 13:38] VITALS: BP 143/69
[2020-02-28 20:00] VITALS: BP 139/64
[2020-02-29 04:50] LABS: HEMATOCRIT 28.3 % (37.0-47.0); HEMOGLOBIN 9.4 gm/dL (12.0-15.0); MCH 27.1 pg (26.0-34.0); MCHC 33.1 g/dL (28.0-37.0); MCV 81.7 fL (80.0-100.0); MPV 9.3 fl. (7.2-11.1); RBC 3.46 mil/uL (4.20-5.00); RDW-CV 16.8 % (10.5-14.5); WBC 9.3 thou/uL (4.0-11.0)
[2020-02-29 05:10] LABS: ALBUMIN 2.1 g/dL (3.4-5.0); CALCIUM 7.9 mg/dL (8.5-10.1); CREATININE 1.1 mg/dL (0.6-1.3); MAGNESIUM 1.9 mg/dL (1.8-2.4); POTASSIUM 3.3 mmol/L (3.5-5.1); TOTAL BILIRUBIN 0.2 mg/dL (<0.1-1.0); TOTAL PROTEIN 6.1 g/dL (6.4-8.2)
[2020-02-29 08:05] VITALS: BP 152/58
[2020-02-29 08:48] LABS: % SATURATION 8 % (20-39); IRON 15 ug/dL (50-175)
--- NOTE | 2020-02-29 10:57 | CON ---
[address] [address] CONSULTATION Name: COHENJONAH K Room: [address] IN M.R.#: [id number] Admission: 02/28/20 Attend Phys: Charlene Silva MD Discharge: Date of : 31 Report #: [id number] THIS REPORT FOR: //name// cc: Allen Sanders MD, James MD ~ THIS REPORT FOR: //name// CC: Allen Silva DATE OF SERVICE: 02/28/2020 INFECTIOUS DISEASE CONSULTATION ATTENDING PHYSICIAN: Dr. Silva. REASON FOR EVALUATION: Ischemic left lower extremity, complicated by chronic wound that acutely worsened with marked inflammation including purulence. HISTORY OF PRESENT ILLNESS: Chart reviewed, patient examined. This is an 89-year-old known to myself, had seen earlier this year for a complicated urinary tract infection. She has known vasculopathy and has had a chronic left lower extremity wounds distally including the top of the foot, had noted coronavirus pandemic and had [facility] due to concerns. She was evaluated previously was felt to have significant arterial occlusive disease. She has not been able to see Vascular Surgery as well over the course of recent days and had increasing inflammation associated with the site. There was purulence clearly exposed hard tissue. Culture was collected apparently with a combination for polymicrobial growth including Staphylococcus aureus as well as Proteus and tend to track down those specific results. She presented to the wound care today and was felt to have marked changes from previous and suggestive of uncontrolled infection, subsequently admitted. She is unable to give additional history. She notes does have some ongoing pain. Denies any awareness of any recent fevers. Appetite has been actually satisfactory. Denies any pulmonary or gastrointestinal related complaints. Labs were fairly unremarkable. Albumin of 2.5. Plain film showed no acute osseous abnormalities involving the tibia and fibula. Chest x-ray was otherwise unremarkable. Had been afebrile since admission. She was initiated on combination of ceftriaxone and vancomycin. ALLERGIES: LISTED TO PENICILLINS, TETRACYCLINE, SULFA, PROTON PUMP INHIBITORS, IODINE, ESZOPICLONE, ESOMEPRAZOLE. CURRENT MEDICATIONS: Include citalopram, furosemide, montelukast, ascorbic acid, aspirin, ferrous sulfate, famotidine, enoxaparin, budesonide, [place] [address] CONSULTATION Name: JONAH COHEN Zeina Room: [address]#: [id number] Admission: 02/28/20 Attend Phys: Charlene Silva MD Discharge: Date of : 31 Report #: [id number] and ceftriaxone. PAST MEDICAL HISTORY: History of hypertension, reflux, iron deficiency anemia, vitamin D deficiency, COPD, has known vasculopathy with severe peripheral vascular disease, high cholesterol, some dementia, mitral valve prolapse. SOCIAL HISTORY: Nonsmoker, no ethanol, no illicit drug use. FAMILY HISTORY: Noncontributory. REVIEW OF SYSTEMS: Not reliably obtained. PHYSICAL EXAMINATION: GENERAL: She is pleasant and cooperative. She is kind of position lying on her left side. She does arouse. She has not overtly distressed, appears chronically undernourished. VITAL SIGNS: Temperature 98, pulse 85, respirations 22, blood pressure 149/64. SKIN: Warm, dry, no rashes. HEENT: Normocephalic. Extraocular muscles intact. NECK: Supple. LUNGS: Diminished breath sounds. HEART: Regular. I do not appreciate a murmur. ABDOMEN: Soft, nontender, nondistended. EXTREMITIES: She has got a dressing in place over the distal left lower extremity that was not disturbed. /RECTAL: Deferred. LABORATORY DATA: CRP elevated at 53.4. Troponin less than 0.06. Electrolytes: Sodium 136, potassium 3.8, chloride 97, bicarbonate is 33, anion gap of 6, BUN and creatinine 24 and 1.2, glucose 110. LFTs unremarkable. Albumin of 2.5, total protein 7.1. Lactic acid 1.7. PT 10.4, INR 1.0. CBC: White count of 11.7, H and H 10.2 and 31.5, platelets of 412. ASSESSMENT AND PLAN: Ischemic left lower extremity distal wounds complicated by appears to be a polymicrobial perhaps synergistic infection. We will continue combination therapy. Noted to have vascular to evaluate specifics to ascertain whether there is any ability to reverse this or she may ultimately require any surgical intervention with amputation. I am not sure as to her level of activity. We will monitor expectantly, certainly at risk for additional infectious complications. <ELECTRONICALLY SIGNED> By: Mitchel Melendez MD 02/29/20 1057 1144 [id number] Melendez MD /nt
[2020-02-29 16:38] VITALS: BP 134/53
[2020-02-29 20:00] VITALS: BP 133/49
[2020-03-01] VITALS (10 sets, daily range): BP systolic 107–175; BP diastolic 46–87
[2020-03-01 04:49] LABS: HEMATOCRIT 29.6 % (37.0-47.0); HEMOGLOBIN 9.7 gm/dL (12.0-15.0); MCHC 32.6 g/dL (28.0-37.0); MCV 82.8 fL (80.0-100.0); RBC 3.58 mil/uL (4.20-5.00); RDW-CV 16.6 % (10.5-14.5); WBC 9.9 thou/uL (4.0-11.0)
[2020-03-01 05:05] LABS: CALCIUM 7.7 mg/dL (8.5-10.1); CREATININE 1.2 mg/dL (0.6-1.3); POTASSIUM 3.4 mmol/L (3.5-5.1)
[2020-03-02] VITALS: BP 124/58
[2020-03-02 04:28] LABS: HEMATOCRIT 26.6 % (37.0-47.0); HEMOGLOBIN 8.7 gm/dL (12.0-15.0); MCHC 32.8 g/dL (28.0-37.0); MCV 82.2 fL (80.0-100.0); MPV 9.4 fl. (7.2-11.1); RBC 3.24 mil/uL (4.20-5.00); RDW-CV 16.8 % (10.5-14.5); WBC 8.9 thou/uL (4.0-11.0)
[2020-03-02 04:42] LABS: CALCIUM 8.4 mg/dL (8.5-10.1); CREATININE 1.2 mg/dL (0.6-1.3); POTASSIUM 3.4 mmol/L (3.5-5.1)
[2020-03-02 07:40] VITALS: BP 139/54
--- NOTE | 2020-03-02 12:25 | EKG ---
[place] [address] ELECTROCARDIOGRAM REPORT Name: JONAH COHEN Room: [address] IN [facility].#: [id number] Admission: 02/28/20 Attend Phys: Charlene Silva, Discharge: Date of : 31 Date of Service: 02/28/20 0932 Report #: [id number] THIS REPORT FOR: //name// [facility] ED Test Date: 2020-02-28 Test Time: 09:32:30 Pat Name: JONAH COHEN Department: Room: [facility] Gender: F Medical Sales Associate: CCD : 1930 Requested By: Julio Cesar Dougherty Order Number: [id number] MD: Blane Zaman Measurements Intervals Robbins Rate: 96 P: 82 KS: 126 QRS: -8 QRSD: 75 T: 52 QT: 405 QTc: 512 Interpretive Statements Sinus rhythm Prolonged QT interval Septal infarct, old, possible Compared to ECG 12/14/2019 09:39:24 Prolonged QT interval now present Sinus tachycardia no longer present Electronically Signed On 02-28-2020 16:14:38 CDT by Blane Zaman [email or web address] <ELECTRONICALLY SIGNED> By: Blane Zaman MD, FAC 02/28/20 1614 0932 0932 Blane Zaman MD, [facility] /EPI
[2020-03-02 16:00] VITALS: BP 111/61
[2020-03-02 20:44] VITALS: BP 119/56
[2020-03-03 04:56] LABS: CALCIUM 7.8 mg/dL (8.5-10.1); MAGNESIUM 1.8 mg/dL (1.8-2.4); POTASSIUM 3.4 mmol/L (3.5-5.1)
[2020-03-03 08:00] VITALS: BP 96/68
[2020-03-03 16:17] VITALS: BP 96/68
[2020-03-03 16:31] VITALS: BP 119/43
[2020-03-03 21:05] VITALS: BP 108/50
[2020-03-04] VITALS: BP 136/41
[2020-03-04 04:00] VITALS: BP 141/51
[2020-03-04 07:45] VITALS: BP 106/43
[2020-03-04 15:48] VITALS: BP 148/62
[2020-03-04 20:00] VITALS: BP 115/42
[2020-03-05 04:34] VITALS: BP 97/31
[2020-03-05 05:30] VITALS: BP 113/45
[2020-03-05 07:09] LABS: MCHC 32.6 g/dL (28.0-37.0); MCV 82.8 fL (80.0-100.0); MPV 8.5 fl. (7.2-11.1); RBC 2.03 mil/uL (4.20-5.00); RDW-CV 16.4 % (10.5-14.5); WBC 8.1 thou/uL (4.0-11.0)
[2020-03-05 07:12] LABS: HEMATOCRIT 16.8 % (37.0-47.0); HEMOGLOBIN 5.5 gm/dL (12.0-15.0)
[2020-03-05 07:32] LABS: CALCIUM 7.2 mg/dL (8.5-10.1); CREATININE 1.1 mg/dL (0.6-1.3); MAGNESIUM 2.2 mg/dL (1.8-2.4); POTASSIUM 3.7 mmol/L (3.5-5.1)
[2020-03-05 07:45] VITALS: BP 118/45
[2020-03-05 10:17] LABS: MCH 27.1 pg (26.0-34.0); MCHC 32.8 g/dL (28.0-37.0); MCV 82.5 fL (80.0-100.0); MPV 8.4 fl. (7.2-11.1); NUCLEATED RBCS 0 /100WBC; PLATELET COUNT* 347 thou/uL (150-400); RBC 1.96 mil/uL (4.20-5.00); RDW-CV 16.6 % (10.5-14.5); WBC 6.4 thou/uL (4.0-11.0)
[2020-03-05 10:22] LABS: HEMATOCRIT 16.2 % (37.0-47.0); HEMOGLOBIN 5.3 gm/dL (12.0-15.0)
[2020-03-05 10:57] LABS: ABSOLUTE EOSINOPHILS 0.6 thou/uL (0.0-0.7); ABSOLUTE LYMPHOCYTES 1.8 thou/uL (0.8-5.3); ABSOLUTE MONOCYTES 0.1 thou/uL (0.0-1.2); ABSOLUTE NEUTROPHILS 3.8 thou/uL (1.6-8.1); PLATELET ESTIMATE ADEQUATE
[2020-03-05 16:31] VITALS: BP 114/49; BP 123/45; BP 131/50
[2020-03-05 20:30] VITALS: BP 117/44
[2020-03-05 21:26] LABS: HEMATOCRIT 21.7 % (37.0-47.0); HEMOGLOBIN 7.2 gm/dL (12.0-15.0)
[2020-03-06 06:34] LABS: HEMATOCRIT 21.8 % (37.0-47.0); HEMOGLOBIN 7.1 gm/dL (12.0-15.0); MCH 27.8 pg (26.0-34.0); MCHC 32.8 g/dL (28.0-37.0); MCV 84.8 fL (80.0-100.0); MPV 8.5 fl. (7.2-11.1); RBC 2.57 mil/uL (4.20-5.00); RDW-CV 17.3 % (10.5-14.5); WBC 7.3 thou/uL (4.0-11.0)
[2020-03-06 06:44] LABS: ALBUMIN 2.1 g/dL (3.4-5.0); CALCIUM 7.6 mg/dL (8.5-10.1); MAGNESIUM 2.1 mg/dL (1.8-2.4); PHOSPHORUS* 3.4 mg/dL (2.5-4.9); POTASSIUM 4.3 mmol/L (3.5-5.1)
[2020-03-06 06:46] LABS: PROTIME 10.5 Seconds (9.20-11.50)
[2020-03-06 07:40] VITALS: BP 121/47
[2020-03-06 16:00] VITALS: BP 142/66
[2020-03-06 20:30] VITALS: BP 139/62
[2020-03-07] VITALS: BP 112/71
[2020-03-07 04:51] LABS: HEMATOCRIT 21.2 % (37.0-47.0); MCH 28.6 pg (26.0-34.0); MCHC 33.2 g/dL (28.0-37.0); MCV 86.2 fL (80.0-100.0); RBC 2.45 mil/uL (4.20-5.00); RDW-CV 18.1 % (10.5-14.5); WBC 8.1 thou/uL (4.0-11.0)
[2020-03-07 05:11] LABS: CALCIUM 7.4 mg/dL (8.5-10.1); CREATININE 1.1 mg/dL (0.6-1.3); MAGNESIUM 1.9 mg/dL (1.8-2.4); PHOSPHORUS* 3.5 mg/dL (2.5-4.9); POTASSIUM 3.9 mmol/L (3.5-5.1)
[2020-03-07 08:15] VITALS: BP 136/55
[2020-03-07 16:10] VITALS: BP 148/59
[2020-03-07 18:32] VITALS: BP 122/53; BP 125/58; BP 143/62; BP 149/65
[2020-03-07 19:45] VITALS: BP 128/58
[2020-03-07 22:16] LABS: HEMATOCRIT 25.8 % (37.0-47.0); HEMOGLOBIN 8.6 gm/dL (12.0-15.0)
[2020-03-08 08:00] VITALS: BP 162/66
[2020-03-08 16:00] VITALS: BP 132/56; BP 96/68
[2020-03-08 17:16] VITALS: BP 96/68
[2020-03-08] MEDS ORDERED: ROCEPHIN 11 GM/1001 IV (20:01)
[2020-03-08] MEDS ORDERED: VANCOMYCIN500 MG/101 IV (20:03)
--- NOTE | 2020-03-09 10:43 | CON ---
[address] [address] CONSULTATION Name: COHENJONAH K Room: [address] IN .R.#: [id number] Admission: 02/28/20 Attend Phys: Charlene Silva MD Discharge: 03/08/20 Date of : 31 Report #: [id number] THIS REPORT FOR: //name// cc: Allen Sanders MD, James MD ~ THIS REPORT FOR: //name// CC: Allen Silva HISTORY OF PRESENT ILLNESS: An 89-year-old female with past medical history significant for hypertension, hyperlipidemia, mitral valve prolapse, peripheral vascular disease, who was brought in with nonhealing left lower extremity wound and cellulitis. GI service has been consulted for anemia and dark colored stool. The patient has baseline of dementia and is unable to provide significant history. Therefore, I called her daughter. Unfortunately, daughter also does not seem to have grasp of her medical issues. She has never had an upper and lower endoscopy that we know of. The patient does not report any abdominal pain, any nausea, vomiting, diarrhea. PAST MEDICAL HISTORY: Peripheral vascular disease; mitral valve prolapse; left lower extremity ulcer, chronic; hyperlipidemia. PAST SURGICAL HISTORY: Hip replacement. SOCIAL HISTORY: No history of smoking, alcohol or recreational drug use. FAMILY HISTORY: Unable to obtain. REVIEW OF SYSTEMS: Unable to obtain because of the patient's mental status. PHYSICAL EXAMINATION: VITAL SIGNS: Temperature 37.2, pulse rate 80, respirations 18, blood pressure 121/47, pulse ox 100%. GENERAL: The patient is alert to self, awake. HEENT: Pupils are equal and round. Mucous membranes are moist. There is no congestion. LUNGS: Clear to auscultation bilaterally. CARDIOVASCULAR: Rate and rhythm regular, S1, S2 present. ABDOMEN: Soft. There is no distention, guarding or rigidity. LABORATORY DATA: Hemoglobin on presentation 5.3, hematocrit 16.2, platelet count 347, WBC count 6.4. Sodium 141, potassium 4.3, chloride 105, BUN 18, creatinine 1. ASSESSMENT AND PLAN: A pleasant 89-year-old female with history outlined above, [place] [address] CONSULTATION Name: JONAH COHEN Room: [address]#: [id number] Admission: 02/28/20 Attend Phys: Charlene Silva MD Discharge: 03/08/20 Date of : 31 Report #: [id number] presenting with anemia, dark colored stool and low hemoglobin. I discussed the case with her daughter who happens to be her DPOA. We will proceed with upper GI endoscopy tomorrow and make further recommendations based on the results of the upper GI endoscopy. Given her age and comorbidities, I am not inclined to do a colonoscopy at this time unless she develops any active GI bleeding. <ELECTRONICALLY SIGNED> By: Armond Jones MD 03/09/20 1043 1243 [id number] Jones MD /
== END 2020-03-08 18:44 | DRG 853 ==
LOC: M.2W 10:27 → M.TBA-ER 10:27 → M.2W 13:19 → M.WC 03-13 09:00
PROVIDERS: Family Medicine; Internal Medicine; ADMIT Internal Medicine
PROC: B40D1ZZ Plain Radiography of Aorta and Bilateral Lower Extremity Arteries using Low Osmolar Contrast (ICD-10-PCS; principal; 2020-03-01)
PROC: 047N3ZZ Dilation of Left Popliteal Artery, Percutaneous Approach (ICD-10-PCS; principal; 2020-03-01)
PROC: 047L3ZZ Dilation of Left Femoral Artery, Percutaneous Approach (ICD-10-PCS; principal; 2020-03-01)
PROC: 30233N1 Transfusion of Nonautologous Red Blood Cells into Peripheral Vein, Percutaneous Approach (ICD-10-PCS; 2020-03-05)
PROC: 0DJ08ZZ Inspection of Upper Intestinal Tract, Via Natural or Artificial Opening Endoscopic (ICD-10-PCS; 2020-03-07)
DX: A41.9 Sepsis, unspecified organism (principal); E43 Unspecified severe protein-calorie malnutrition; L03.116 Cellulitis of left lower limb; L97.929 Non-pressure chronic ulcer of unspecified part of left lower leg with unspecified severity; Z68.1 Body mass index [BMI] 19.9 or less, adult; D62 Acute posthemorrhagic anemia; K92.2 Gastrointestinal hemorrhage, unspecified; M65.862 Other synovitis and tenosynovitis, left lower leg; I34.1 Nonrheumatic mitral (valve) prolapse; E78.00 Pure hypercholesterolemia, unspecified; Z96.641 Presence of right artificial hip joint; J44.9 Chronic obstructive pulmonary disease, unspecified; F03.90 Unspecified dementia, unspecified severity, without behavioral disturbance, psychotic disturbance, mood disturbance, and anxiety; K21.9 Gastro-esophageal reflux disease without esophagitis; M54.9 Dorsalgia, unspecified; I73.9 Peripheral vascular disease, unspecified; G89.4 Chronic pain syndrome; D64.9 Anemia, unspecified; E78.5 Hyperlipidemia, unspecified; I77.1 Stricture of artery; M65.9 Synovitis and tenosynovitis, unspecified; N18.3 Chronic kidney disease, stage 3 (moderate); D63.8 Anemia in other chronic diseases classified elsewhere; E87.6 Hypokalemia; K44.9 Diaphragmatic hernia without obstruction or gangrene; Z79.82 Long term (current) use of aspirin; Z79.891 Long term (current) use of opiate analgesic; Z87.891 Personal history of nicotine dependence; Z88.1 Allergy status to other antibiotic agents; Z88.0 Allergy status to penicillin; Z88.2 Allergy status to sulfonamides; Z88.8 Allergy status to other drugs, medicaments and biological substances; Z79.899 Other long term (current) drug therapy

== ENCOUNTER → 2020-03-20 | Outpatient (CLI) | payer MEDICARE, MEDICAID ==
[~2020-03-20] MED LIST changes: +DULCOLAX STOOL100 M1 PO; +JUVEN PACKET1 EAC1 PO; +LINEZOLID600 MG PO; +MILK OF MA400 MG/5 M PO; +MIRALAX119 GM PO; +NORCO 5-325 TA1 EAC1 PO; +ROCEPHIN 11 GM/1001 IV; +VANCOMYCIN500 MG/101 IV; +VITAMIN C500 M2 PO; +VITAMIN D3 COM1 EACH PO
--- NOTE | 2020-03-21 12:01 | CON ---
[address] [address] CONSULTATION Name: COHENJONAH K Room: [facility]#: [id number] Admission: 03/20/20 Attend Phys: Jamari Sommers MD Discharge: Date of : 31 Report #: [id number] THIS REPORT FOR: //name// cc: Allen Sanders MD, James MD ~ THIS REPORT FOR: //name// CC: Allen Sommers DATE OF SERVICE: 03/20/2020 INFECTIOUS DISEASE CONSULTATION The patient is seen at the outpatient wound care center at [facility]. ATTENDING PHYSICIAN: Dr. Jamari Sommers. 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 HISTORY OF PRESENT ILLNESS: Chart reviewed, patient examined. This is an 89-year-old woman I saw in the hospital roughly 3-4 weeks ago. She had necrotizing infection involving her foot. It is felt to be in part due to severe vasculopathy that was attempted to address. She is undergoing intensive wound care as opposed to amputation. She has been on combination parenteral therapy with ceftriaxone and vancomycin in the interim since her discharge. She does show some evidence of healing at this point per Dr. Sommers. He did remove additional material including the tendon. On questioning, she denies significant amount of pain or discomfort with the exception of manipulation of the wound, has not been systemically ill per watch caser. Her appetite has been fair. ASSESSMENT AND PLAN: Chronic ulceration involving the dorsal aspect of the distal leg and on to the foot. We will continue current approach with combination therapy. Vancomycin has been adjusted based on the levels. We will see her back in 2 weeks for reevaluation that appears in the 5-6-week interval of treatment. <ELECTRONICALLY SIGNED> By: Mitchel Melendez MD 03/21/20 1201 0731 [id number] Melendez MD /nt
== END ==
LOC: M.WC 04:32
DX: I70.244 Atherosclerosis of native arteries of left leg with ulceration of heel and midfoot (principal); L89.620 Pressure ulcer of left heel, unstageable; L97.421 Non-pressure chronic ulcer of left heel and midfoot limited to breakdown of skin; L89.893 Pressure ulcer of other site, stage 3; L97.525 Non-pressure chronic ulcer of other part of left foot with muscle involvement without evidence of necrosis; L89.520 Pressure ulcer of left ankle, unstageable; J44.9 Chronic obstructive pulmonary disease, unspecified; F03.90 Unspecified dementia, unspecified severity, without behavioral disturbance, psychotic disturbance, mood disturbance, and anxiety; Z87.891 Personal history of nicotine dependence

== ENCOUNTER → 2020-04-03 | Outpatient (CLI) | payer MEDICARE, MEDICAID ==
--- NOTE | 2020-04-03 14:56 | CON ---
[address] [address] CONSULTATION Name: JONAH COHEN Room: [facility]#: [id number] Admission: 04/03/20 Attend Phys: Jamari Sommers MD Discharge: Date of : 31 Report #: [id number] THIS REPORT FOR: //name// cc: Allen Sanders MD, James MD ~ THIS REPORT FOR: //name// CC: Allen Sommers DATE OF SERVICE: 04/03/2020 INFECTIOUS DISEASE CONSULTATION FOLLOWUP ATTENDING PHYSICIAN: Dr. Sommers. REASON FOR EVALUATION: Left foot ulcers in the setting of vasculopathy involving the dorsal aspect of the proximal foot onto the ankle as well as the heel. HISTORY OF PRESENT ILLNESS: The patient returns in followup, having completed 4-5 weeks of parenteral therapy with combination of vancomycin and ceftriaxone. Apparently, she is tolerating that well. She denies any recent fevers or chills. She has not had significant pain unless the wound is being manipulated. Her appetite has generally been fairly good and this was confirmed by her caregiver. She is not overtly distressed. PHYSICAL EXAMINATION: On examination, the wound has increased granulation tissue. There is moderate to marked amount of debris and slough, which Dr. Sommers removed. It was bleeding satisfactorily. ASSESSMENT AND PLAN: Deep infection involving the left foot with advanced stage wounds and seen to be healing. Continue combination therapy with ceftriaxone and vancomycin over the course of next 2 weeks. Ideally, then we will transition to oral. Continue wound care as prescribed, optimize nutritional status. We will follow. <ELECTRONICALLY SIGNED> By: Mitchel Melendez MD 04/03/20 1456 0931 1106Jofernando Melendez MD /nt
== END ==
LOC: M.WC 05:19
DX: I70.244 Atherosclerosis of native arteries of left leg with ulceration of heel and midfoot (principal); L89.620 Pressure ulcer of left heel, unstageable; L97.421 Non-pressure chronic ulcer of left heel and midfoot limited to breakdown of skin; L89.893 Pressure ulcer of other site, stage 3; L97.525 Non-pressure chronic ulcer of other part of left foot with muscle involvement without evidence of necrosis; J44.9 Chronic obstructive pulmonary disease, unspecified; F03.90 Unspecified dementia, unspecified severity, without behavioral disturbance, psychotic disturbance, mood disturbance, and anxiety; Z87.891 Personal history of nicotine dependence

== ENCOUNTER → 2020-04-17 | Outpatient (CLI) | payer MEDICARE, MEDICAID ==
[2020-04-17 10:00] VITALS: BP 152/63
[2020-04-17 11:25] VITALS: BP 156/66
--- NOTE | 2020-04-17 11:32 | NUR ---
RIGHT BASILIC VESSEL ASSESSED FOR PATENTCY AND FOUND TO HAVE A PARTIALLY OCCLUSIVE CLOT-LIKE MASS ABOVE THE PREVIOUS PICC INSERTION SITE. LEFT BASILIC VESSEL ACCESSED FOR SINGLE LUMEN 4 ALBANIAN PICC. LINE PRE-TRIMMED TO 35 CM AND ADVANCED TO THE ZERO RICKY WITH NO RESISTANCE MET. UPPER ARM CIRCUMFERENCE ABOVE INSERTION SITE= 9 1/2". SHERLOCK MAGNET AND 3CG CONFIRMATION OF TIP TERMINATION AT TNE CAVOATRIAL JUNCTION APPRECIATED. GUIDEWIRE REMOVED, LINE FLUSHED AND INSERTION SITE DRESSED. DRESSING WRAPPED WITH COBAN. REPORT CALLED TO ELIDA LOZA OF [facility].
--- NOTE | 2020-04-18 12:17 | CON ---
[address] [address] CONSULTATION Name: VICKIJONAH K Room: [facility]#: [id number] Admission: 04/17/20 Attend Phys: Jamari Sommers MD Discharge: Date of : 31 Report #: [id number] THIS REPORT FOR: //name// cc: Allen Sanders MD, James MD ~ THIS REPORT FOR: //name// CC: Allen Sommers DATE OF SERVICE: 04/17/2020 INFECTIOUS DISEASE CONSULTATION This is an outpatient wound care clinic visit. ATTENDING PHYSICIAN: Jamari Sommers MD REASON FOR EVALUATION: Chronic ulcer complicated by deep infection involving the dorsal aspect of the proximal foot onto the ankle. This historically is an exposed tendon. HISTORY OF PRESENT ILLNESS: Chart reviewed. She returns today in followup. She is quite confused; I think that is her baseline. It is difficult to ascertain any new complaints. She states she has been eating fairly well. She is unaware of any fevers or chills. It is noted per the nursing facility staff that the PICC line was presumably inadvertently removed on 04/15. She had been on combination therapy with vancomycin and ceftriaxone since her hospitalization roughly 4 weeks ago. She is quite animated. She denies significant amount of pain with exception of manipulation of the site. LABORATORY DATA: On review of the labs, her sed rate is still mildly elevated. Otherwise, fairly unremarkable. ASSESSMENT AND PLAN: Deep infection. I think I would favor replacing the PICC line and doing 2 additional weeks of treatment that should be a reasonable length of therapy. We will consider transition to oral as well. She was encouraged to optimize her nutritional intake. Wound care as prescribed by Dr. Sommers. We will see her in 2 weeks. <ELECTRONICALLY SIGNED> By: Mitchel Melendez MD 04/18/20 1217 1208 [id number] Melendez MD /nt
== END ==
LOC: M.WC 04-10 09:00 → M.INFUS 04:15 → M.WC 04:15
DX: I70.244 Atherosclerosis of native arteries of left leg with ulceration of heel and midfoot (principal); L89.620 Pressure ulcer of left heel, unstageable; L97.422 Non-pressure chronic ulcer of left heel and midfoot with fat layer exposed; L97.525 Non-pressure chronic ulcer of other part of left foot with muscle involvement without evidence of necrosis; J44.9 Chronic obstructive pulmonary disease, unspecified; F03.90 Unspecified dementia, unspecified severity, without behavioral disturbance, psychotic disturbance, mood disturbance, and anxiety; Z96.651 Presence of right artificial knee joint; Z87.891 Personal history of nicotine dependence

== ENCOUNTER → 2020-05-01 | Outpatient (CLI) | payer MEDICARE, MEDICAID ==
--- NOTE | 2020-05-02 12:20 | CON ---
[address] [address] CONSULTATION Name: COHENJONAH K Room: [facility]#: [id number] Admission: 05/01/20 Attend Phys: Jamari Sommers MD Discharge: Date of : 31 Report #: [id number] THIS REPORT FOR: //name// cc: Allen Sanders MD, James MD ~ THIS REPORT FOR: //name// CC: Allen Sommers DATE OF SERVICE: 05/01/2020 INFECTIOUS DISEASE CONSULTATION ATTENDING PHYSICIAN: Jamari Sommers MD REASON FOR FOLLOWUP: Chronic ulcer involving the dorsal proximal aspect of the foot, complicated by necrotizing infection. HISTORY OF PRESENT ILLNESS: Chart reviewed, patient examined. The patient returns today in followup, having been on antibiotics for several weeks. It is notable that had to discontinue them due to repeated removal of her PICC lines, not clear that she is aware while it was felt not to exacerbate the situation. PHYSICAL EXAMINATION: EXTREMITIES: The wound actually appears to be much improved. Granulation tissue has no exposed tendon at this point, this was not the case previously. There is very little inflammation. There is apparently reasonable blood supply. On questioning, she denies any significant pain or discomfort. The caregiver notes no fevers. Appetite has generally been fairly good. ASSESSMENT AND PLAN: Chronic ulceration, complicated by infection. At this point, we would not extend the antibiotics ____ making effort to replace the PICC line. Did discuss with Dr. Sommers, who is in agreement. We will see her in 2 weeks. <ELECTRONICALLY SIGNED> By: Mitchel Melendez MD 05/02/20 1220 0704 0749Mitchel Melendez MD /nt
== END ==
LOC: M.WC 04:25
PROVIDERS: ATTEND Emergency Medicine Undersea and Hyperbaric Medicine
DX: I70.244 Atherosclerosis of native arteries of left leg with ulceration of heel and midfoot (principal); L89.893 Pressure ulcer of other site, stage 3; L97.521 Non-pressure chronic ulcer of other part of left foot limited to breakdown of skin; L89.620 Pressure ulcer of left heel, unstageable; J44.9 Chronic obstructive pulmonary disease, unspecified; F03.90 Unspecified dementia, unspecified severity, without behavioral disturbance, psychotic disturbance, mood disturbance, and anxiety; Z96.651 Presence of right artificial knee joint; Z87.891 Personal history of nicotine dependence

== ENCOUNTER → 2020-05-22 | Outpatient (CLI) | payer MEDICARE, MEDICAID | LOC: M.WC 04:27 | PROVIDERS: ATTEND Emergency Medicine Undersea and Hyperbaric Medicine | DX: I70.244 Atherosclerosis of native arteries of left leg with ulceration of heel and midfoot (principal); L89.620 Pressure ulcer of left heel, unstageable; L97.421 Non-pressure chronic ulcer of left heel and midfoot limited to breakdown of skin; L89.893 Pressure ulcer of other site, stage 3; L97.521 Non-pressure chronic ulcer of other part of left foot limited to breakdown of skin; J44.9 Chronic obstructive pulmonary disease, unspecified; F03.90 Unspecified dementia, unspecified severity, without behavioral disturbance, psychotic disturbance, mood disturbance, and anxiety; Z96.641 Presence of right artificial hip joint; Z87.891 Personal history of nicotine dependence; Z95.820 Peripheral vascular angioplasty status with implants and grafts ==

== ENCOUNTER → 2020-07-03 | Outpatient (CLI) | payer MEDICARE, MEDICAID | LOC: M.WC 05:40 | PROVIDERS: ATTEND Emergency Medicine Undersea and Hyperbaric Medicine | DX: I70.244 Atherosclerosis of native arteries of left leg with ulceration of heel and midfoot (principal); L89.620 Pressure ulcer of left heel, unstageable; L97.421 Non-pressure chronic ulcer of left heel and midfoot limited to breakdown of skin; I70.245 Atherosclerosis of native arteries of left leg with ulceration of other part of foot; L89.893 Pressure ulcer of other site, stage 3; L97.521 Non-pressure chronic ulcer of other part of left foot limited to breakdown of skin; J44.9 Chronic obstructive pulmonary disease, unspecified; N18.2 Chronic kidney disease, stage 2 (mild); F03.90 Unspecified dementia, unspecified severity, without behavioral disturbance, psychotic disturbance, mood disturbance, and anxiety; Z87.891 Personal history of nicotine dependence; Z79.82 Long term (current) use of aspirin; Z96.642 Presence of left artificial hip joint ==

== ENCOUNTER → 2020-07-24 | Outpatient (CLI) | payer MEDICARE, MEDICAID | LOC: M.WC 03:40 | PROVIDERS: ATTEND Emergency Medicine Undersea and Hyperbaric Medicine | DX: I70.244 Atherosclerosis of native arteries of left leg with ulceration of heel and midfoot (principal); L89.620 Pressure ulcer of left heel, unstageable; L97.422 Non-pressure chronic ulcer of left heel and midfoot with fat layer exposed; I70.245 Atherosclerosis of native arteries of left leg with ulceration of other part of foot; L89.893 Pressure ulcer of other site, stage 3; L97.521 Non-pressure chronic ulcer of other part of left foot limited to breakdown of skin; J44.9 Chronic obstructive pulmonary disease, unspecified; F03.90 Unspecified dementia, unspecified severity, without behavioral disturbance, psychotic disturbance, mood disturbance, and anxiety; Z87.891 Personal history of nicotine dependence; Z96.649 Presence of unspecified artificial hip joint ==

== ENCOUNTER → 2020-08-14 | Outpatient (CLI) | payer MEDICARE, MEDICAID | LOC: M.WC 03:29 | PROVIDERS: ATTEND Emergency Medicine Undersea and Hyperbaric Medicine | DX: I70.244 Atherosclerosis of native arteries of left leg with ulceration of heel and midfoot (principal); L89.623 Pressure ulcer of left heel, stage 3; L97.422 Non-pressure chronic ulcer of left heel and midfoot with fat layer exposed; J44.9 Chronic obstructive pulmonary disease, unspecified; F03.90 Unspecified dementia, unspecified severity, without behavioral disturbance, psychotic disturbance, mood disturbance, and anxiety; Z87.891 Personal history of nicotine dependence ==

== ENCOUNTER → 2020-09-04 | Outpatient (CLI) | payer MEDICARE, MEDICAID | LOC: M.WC 05:32 | PROVIDERS: ATTEND Emergency Medicine Undersea and Hyperbaric Medicine | DX: I70.244 Atherosclerosis of native arteries of left leg with ulceration of heel and midfoot (principal); L89.623 Pressure ulcer of left heel, stage 3; L97.422 Non-pressure chronic ulcer of left heel and midfoot with fat layer exposed; J44.9 Chronic obstructive pulmonary disease, unspecified; F03.90 Unspecified dementia, unspecified severity, without behavioral disturbance, psychotic disturbance, mood disturbance, and anxiety; Z87.891 Personal history of nicotine dependence ==

== ENCOUNTER → 2020-09-25 | Outpatient (CLI) | payer MEDICARE, MEDICAID | LOC: M.WC 07:12 | PROVIDERS: ATTEND Emergency Medicine Undersea and Hyperbaric Medicine | DX: I70.244 Atherosclerosis of native arteries of left leg with ulceration of heel and midfoot (principal); L89.623 Pressure ulcer of left heel, stage 3; L97.422 Non-pressure chronic ulcer of left heel and midfoot with fat layer exposed; J44.9 Chronic obstructive pulmonary disease, unspecified; F03.90 Unspecified dementia, unspecified severity, without behavioral disturbance, psychotic disturbance, mood disturbance, and anxiety; Z87.891 Personal history of nicotine dependence; Z96.649 Presence of unspecified artificial hip joint ==

== ENCOUNTER → 2020-10-16 | Outpatient (CLI) | payer MEDICARE, MEDICAID | LOC: M.WC 07:43 | PROVIDERS: ATTEND Emergency Medicine Undersea and Hyperbaric Medicine | DX: I70.244 Atherosclerosis of native arteries of left leg with ulceration of heel and midfoot (principal); L89.623 Pressure ulcer of left heel, stage 3; L97.422 Non-pressure chronic ulcer of left heel and midfoot with fat layer exposed; J44.9 Chronic obstructive pulmonary disease, unspecified; F03.90 Unspecified dementia, unspecified severity, without behavioral disturbance, psychotic disturbance, mood disturbance, and anxiety; Z87.891 Personal history of nicotine dependence; Z95.820 Peripheral vascular angioplasty status with implants and grafts ==

== ENCOUNTER → 2020-11-20 | Outpatient (CLI) | payer MEDICARE, MEDICAID | LOC: M.WC 09:00 | PROVIDERS: ATTEND Emergency Medicine Undersea and Hyperbaric Medicine | DX: I70.244 Atherosclerosis of native arteries of left leg with ulceration of heel and midfoot (principal); L89.623 Pressure ulcer of left heel, stage 3; L97.421 Non-pressure chronic ulcer of left heel and midfoot limited to breakdown of skin; J44.9 Chronic obstructive pulmonary disease, unspecified; N18.2 Chronic kidney disease, stage 2 (mild); F03.90 Unspecified dementia, unspecified severity, without behavioral disturbance, psychotic disturbance, mood disturbance, and anxiety; Z87.891 Personal history of nicotine dependence; Z96.641 Presence of right artificial hip joint; Z79.82 Long term (current) use of aspirin ==

== ENCOUNTER → 2020-12-18 | Outpatient (CLI) | payer MEDICARE, MEDICAID | LOC: M.WC 12-11 09:00 | PROVIDERS: ATTEND Emergency Medicine Undersea and Hyperbaric Medicine | DX: I70.244 Atherosclerosis of native arteries of left leg with ulceration of heel and midfoot (principal); L89.623 Pressure ulcer of left heel, stage 3; L97.422 Non-pressure chronic ulcer of left heel and midfoot with fat layer exposed; J44.9 Chronic obstructive pulmonary disease, unspecified; N18.2 Chronic kidney disease, stage 2 (mild); F03.90 Unspecified dementia, unspecified severity, without behavioral disturbance, psychotic disturbance, mood disturbance, and anxiety; Z87.891 Personal history of nicotine dependence; Z96.641 Presence of right artificial hip joint; Z79.82 Long term (current) use of aspirin ==

== ENCOUNTER 2021-01-02 19:50 | Inpatient (IN) | payer MEDICARE, MEDICAID ==
[~2021-01-02] VITALS: Ht 157.5 cm; Wt 43.4 kg
--- NOTE | ~2021-01-02 | PROC ---
[address] [address] PROCEDURE REPORT Name: JONAH COHEN Room: [address] IN M.R.#: [id number] Admission: 01/03/21 Attend Phys: Allen Sanders MD Discharge: 01/05/21 Date of : 31 Report #: [id number] THIS REPORT FOR: cc: Allen Sanders MD, James MD ~ [facility],Medical Records Staff For GI report, please see the Provation report in Perceptive 7 content. By: [id number] Records Staff [facility] /SELIN
[2021-01-02 19:51] VITALS: BP 103/30
[2021-01-02 20:17] LABS: ABSOLUTE EOSINOPHILS 0.7 thou/uL (0.0-0.7); ABSOLUTE LYMPHOCYTES 2.3 thou/uL (0.8-5.3); ABSOLUTE MONOCYTES 1.1 thou/uL (0.0-1.2); ABSOLUTE NEUTROPHILS 7.3 thou/uL (1.6-8.1); BASOPHILS 0.3 %; EOSINOPHILS 6.4 %; HEMATOCRIT 21.1 % (37.0-47.0); LYMPHOCYTES 19.7 %; MCH 29.8 pg (26.0-34.0); MCHC 32.2 g/dL (28.0-37.0); MCV 92.3 fL (80.0-100.0); MONOCYTES 9.9 %; NUCLEATED RBCS 0 /100WBC; PLATELET COUNT* 293 thou/uL (150-400); POLYS 63.7 %; RBC 2.28 mil/uL (4.20-5.00); RDW-CV 13.7 % (10.5-14.5); WBC 11.5 thou/uL (4.0-11.0)
[2021-01-02 20:19] LABS: HEMOGLOBIN 6.8 gm/dL (12.0-15.0)
[2021-01-02 20:22] LABS: ANION GAP 6 mmol/L (7-16); BUN 63 mg/dL (7-18); CHLORIDE 100 mmol/L (98-107); CO2 35 mmol/L (21-32); CREATININE 1.6 mg/dL (0.6-1.3); GLUCOSE 109 mg/dL (70-99); POTASSIUM 3.7 mmol/L (3.5-5.1); SODIUM 141 mmol/L (136-145)
[2021-01-02 20:27] LABS: ALBUMIN 2.8 g/dL (3.4-5.0); ALKALINE PHOSPHATASE 61 U/L (46-116); SGOT 18 U/L (15-37); SGPT 19 U/L (30-65); TOTAL PROTEIN 6.6 g/dL (6.4-8.2)
[2021-01-02 20:33] LABS: TOTAL BILIRUBIN < 0.1 mg/dL (<0.1-1.0)
[2021-01-02 22:45] VITALS: BP 111/46
[2021-01-02 23:13] VITALS: BP 150/62
[2021-01-02] MEDS ORDERED: HYDROXYZINE HCL50 MG PO (23:48)
[2021-01-02] MEDS ORDERED: KLOR-CON 10 ER10 MEQ PO (23:49)
[2021-01-02] MEDS ORDERED: SINGULAIR 4 MG C4 M1 PO (23:51)
[2021-01-03 03:00] LABS: HEMATOCRIT 26.5 % (37.0-47.0); HEMOGLOBIN 8.7 gm/dL (12.0-15.0)
[2021-01-03 03:58] VITALS: BP 124/64
--- NOTE | 2021-01-03 05:17 | NUR ---
RECIEVED REPORT FROM ED RN. PT TRANSFERRED TO 204. PT A&OX2-3. FORGEFTUL. VSS. KENO WRITER IN PLACE. ADMISSION HISTORY & PHYSICAL ASSESSMENT COMPLETED AND CHARTED. PT ON O2 AT 2L NC. PT TRACING SR ON TELE. TRANSFUSED 1 UNIT OF BLOOD. PT WITH EPISODES OF INCONTINENT BLADDER.PT INSTRUCTED ON NPO POST MIDNIGHT FOR GI CONSULT. COMMUNICATES UNDERSTANDING. PT ABLE TO SLEEP WELL ON BED. FALL PRECAUTIONS IN PLACE. CALL LIGHT WITHIN REACH.
[2021-01-03 08:00] VITALS: BP 117/64
--- NOTE | 2021-01-03 11:32 | EKG ---
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[place] : 1930 Requested By: Hannah Valenzuela Order Number: [id number] MD: Sam Holloway Measurements Intervals [place] Rate: 93 P: 79 FL: 129 QRS: 0 QRSD: 80 T: 67 QT: 381 QTc: 474 Interpretive Statements Sinus rhythm Anteroseptal infarct, old possible Compared to ECG 02/28/2020 09:32:30 Prolonged QT interval no longer present Myocardial infarct finding still present Electronically Signed On 01-03-2021 11:32:14 INDUSTRIAL PLANT CUSTODIAN by Sam Holloway [email or web address] <ELECTRONICALLY SIGNED> By: Sam Holloway MD, [facility] 01/03/21 1132 57 57 Sam Holloway MD, [facility] /EPI
[2021-01-03 12:00] VITALS: BP 140/50
--- NOTE | 2021-01-03 14:58 | NUR ---
Pt has dementia. CM spoke with Pt's dtr via phone. Pt is a LTC resident at [facility] and plan is to return at [facility]. CM spoke with Nayana, admissions at [facility], they are able to accept Pt back. Pt is w[facility] bound. Wears o2 per dtr. GI following. [facility] BHARAT p:[phone] f:[phone]
[2021-01-03 16:00] VITALS: BP 137/53
--- NOTE | 2021-01-03 19:03 | NUR ---
I ASSUMED CARE OF THE PATIENT AT 0700. SHE IS ALERT AND ORIENTED X2, BUT VERY PLEASANT. BED IS IN THE LOW LOCKED POSITION AND CALL LIGHT IS IN REACH. SHE IS REPOSITIONED EVERY 2 HOURS AND IS INCONT. HOURLY ROUNDING IS COMPLETED AND PATIENT NEEDS ARE MET. PAIN IS DENIED. DIET WAS ADVANCED TO CLEAR LIQUIDS AND WAS TOLERATED. NEW ORDERS WERE OBTAINED FROM GI. WE ARE USING CREAM ON HER BOTTOM. SCD'S WERE PLACED. WILL CONTINUE TO MONITOR.
[2021-01-03 20:00] VITALS: BP 143/63
[2021-01-04] VITALS: BP 167/68
[2021-01-04 04:00] VITALS: BP 150/51
--- NOTE | 2021-01-04 07:20 | NUR ---
ASSUMED PT'S CARE BEGINNING OF PM SHIFT. ALERT AND ORIENTED X3. FORGETFUL. PT SLEPT WELL THIS SHIFT. Q2 TURN. INCONTINENT OF BLADDER. PT NPO AND EGD THIS AM PER DR ZAMBRANO. PROTONIX GIVEN WITH LITTLE SIP OF WATER THIS AM. FALL PRECAUTION IN PLACE. CALL LIGHT WITHIN REACH. WILL CONTINUE TO MONITOR.
[2021-01-04 08:15] VITALS: BP 177/93
[2021-01-04 08:41] LABS: ABSOLUTE BASOPHILS 0.1 thou/uL (0.0-0.2); ABSOLUTE EOSINOPHILS 0.3 thou/uL (0.0-0.7); ABSOLUTE LYMPHOCYTES 1.6 thou/uL (0.8-5.3); ABSOLUTE MONOCYTES 0.8 thou/uL (0.0-1.2); ABSOLUTE NEUTROPHILS 6.4 thou/uL (1.6-8.1); BASOPHILS 0.7 %; EOSINOPHILS 3.7 %; HEMATOCRIT 27.2 % (37.0-47.0); HEMOGLOBIN 9.1 gm/dL (12.0-15.0); LYMPHOCYTES 17.1 %; MCH 29.9 pg (26.0-34.0); MCHC 33.3 g/dL (28.0-37.0); MONOCYTES 8.7 %; MPV 8.9 fl. (7.2-11.1); NUCLEATED RBCS 0 /100WBC; PLATELET COUNT* 340 thou/uL (150-400); POLYS 69.8 %; RBC 3.02 mil/uL (4.20-5.00); RDW-CV 14.5 % (10.5-14.5); WBC 9.1 thou/uL (4.0-11.0)
[2021-01-04 09:21] LABS: CREATININE 1.4 mg/dL (0.6-1.3); POTASSIUM 3.9 mmol/L (3.5-5.1); TOTAL BILIRUBIN 0.2 mg/dL (<0.1-1.0); TOTAL PROTEIN 6.9 g/dL (6.4-8.2)
[2021-01-04 09:25] LABS: % SATURATION 15 % (20-39); IRON 37 ug/dL (50-175)
--- NOTE | 2021-01-04 10:03 | NUR ---
Nutrition: Pt admitted with GIB. NPO for EGD. She is from LTC, W/C bound. H/o dementia, COPD, GERD, HTN. Alb 3, prealb 26.5. Usual wt is 110-100#, current wt 100#. Physician indicated moderate PCM - defer. BMI is low 18.3, but no noted significant recent wt loss. Hopeful for good po intake when diet advances. Consider mild risk at this time. Will follow for diet order, po intake, wt, labs 01/08/21.
--- NOTE | 2021-01-04 10:18 | NUR ---
Attempted to contact "Vy" pts DPOA multiple times by floor nurse and this PACU nurse with several messages left to obtain consent for EGD. Spoke with Dr. Santos and he stated this will be set as Medical Necessity due to her anemia.
--- NOTE | 2021-01-04 11:29 | NUR ---
Pt to have EGD today. Concha Kraus at [facility], they are able to accept Pt back to LTC over the weekend. Anticipate dc tomorrow.
[2021-01-04 12:00] VITALS: BP 175/90
[2021-01-04 16:00] VITALS: BP 131/53
--- NOTE | 2021-01-04 17:58 | NUR ---
PT IS ALERT AND ORIENTED X2 TO SELF AND PLACE PT HAD EGD AND CT DONE TODAY DTR CAME TO VISIT DENIES PAIN OR DISCOMFORT ATE FOOD WITHOUT DIFFICULTY STILL NEED MEDS RESTARTED FROM HOME BP WAS HIGHER THIS AM HR IS IN 80S SR WILL CONT TO MONITOR PT PT IS FROM [facility]ISON SO COULD DC HOME THIS W/E IF ABLE CALL LIGHT IN REACH
[2021-01-04 23:30] VITALS: BP 124/66
--- NOTE | 2021-01-05 03:39 | NUR ---
ASSUMED CARE OF PT AT 1900. PT IS CONFUSED. VSS. PT IS INCONTINANT. PURE WICK CATHETER PLACED. PTS RYAN ARE IS EXCORIATED DUE TO INCONTINANCE. PT IS IN SINUS RYTHM ON THE TELEMETRY. PT IS RESTING COMFORTABLY IN BED. RESPIRATIONS ARE EVEN AND NONLABORED. WILL CONTINUE TO MONITOR PT.
[2021-01-05 04:33] VITALS: BP 148/64
[2021-01-05 08:00] VITALS: BP 164/51
[2021-01-05 09:47] LABS: ABSOLUTE BASOPHILS 0.1 thou/uL (0.0-0.2); ABSOLUTE EOSINOPHILS 0.3 thou/uL (0.0-0.7); ABSOLUTE LYMPHOCYTES 1.6 thou/uL (0.8-5.3); ABSOLUTE MONOCYTES 0.8 thou/uL (0.0-1.2); ABSOLUTE NEUTROPHILS 8.6 thou/uL (1.6-8.1); BASOPHILS 0.5 %; EOSINOPHILS 2.4 %; HEMATOCRIT 28.5 % (37.0-47.0); HEMOGLOBIN 9.3 gm/dL (12.0-15.0); MCH 29.6 pg (26.0-34.0); MCHC 32.5 g/dL (28.0-37.0); MCV 91.2 fL (80.0-100.0); MONOCYTES 6.9 %; MPV 8.9 fl. (7.2-11.1); NUCLEATED RBCS 0 /100WBC; PLATELET COUNT* 366 thou/uL (150-400); POLYS 76.2 %; RBC 3.12 mil/uL (4.20-5.00); RDW-CV 14.5 % (10.5-14.5); WBC 11.3 thou/uL (4.0-11.0)
[2021-01-05 10:01] LABS: ALBUMIN 3.2 g/dL (3.4-5.0); CALCIUM 8.2 mg/dL (8.5-10.1); CREATININE 1.5 mg/dL (0.6-1.3); POTASSIUM 3.4 mmol/L (3.5-5.1); TOTAL BILIRUBIN 0.2 mg/dL (<0.1-1.0); TOTAL PROTEIN 7.4 g/dL (6.4-8.2)
[2021-01-05] MEDS ORDERED: PROTONIX40 M4 PO (10:26)
--- NOTE | 2021-01-05 12:27 | NUR ---
ASSUMED CARE OF PATIENT THIS AM AT 0730. PATIENT IS ALERT. SHE C/O BACK PAIN WITH MOVEMENT. TELE SHOWS SR. LOUIE IN TO ROUND. PLANS TO DISCHARGE BACK TO SNF THIS AFTERNOON.
--- NOTE | 2021-01-05 13:46 | NUR ---
CM INFORMED BY THE RN IN-CHARGE OF THE PT OF THE PHYSICIAN'S PLAN TO D/C THE PT BACK TO HER LTC BED AT [facility]. CM CALLED AND SPOKE TO [facility]'S ADMISSIONS AND THEY HAVE ARRANGED TRASPORTATION FOR THE PT FOR 1500. CM INFORMED THE RN IN-CHARGE OF THE PT OF THE PT'S TIME OF TRANSFER AND WHERE TO CALL REPORT. RN IN AGREEMENT. CM WILL REMAIN AVIALABLE TO ASSIST AND FOLLOW NEEDED. [facility] PHONE: [phone] FAX: [phone]
--- NOTE | 2021-01-09 18:06 | PATH ---
[address] [address] PATHOLOGY RPT PROCEDURE Name: VALERIE COHEN Room: [address] IN M.R.#: [id number] Admission: 01/03/21 Date of : 32 Discharge: 01/05/21 Report #: [id number] Path Case #: [id number] [facility] Accession Number: [id number] . 01 Material submitted: . PART A: gastrointestinal site - ANTRAL PRE PYLORIC GASTRIC ULCER PART B: gastrointestinal site - ANTRAL BIOPSY FOR H PYLORI . 01 Clinical history: . EGD BIOPSIES . 02 Diagnosis: A. Antral prepyloric gastric ulcer: - Mild chronic and active, polypoid antral gastritis suggesting reactive gastropathy (chemical gastritis), negative for Helicobacter pylori organisms, granulomas and dysplasia. . B. Antral biopsy: - Moderate nonspecific chronic antral gastritis, negative for Helicobacter pylori organisms, granulomas and dysplasia. . (BUD:mmdiogo; 01/09/2021) QL 01/09/2021 1739 Local . 02 Comment: Special stains (A and B): H. pylori immunos . (BUD:mml; 01/09/2021) . 02 Electronically signed: . Navid Ledesma MD, Pathologist NPI- [id number] . 01 Gross description: . A. Received in formalin labeled "Valerie Cohen, antral prepyloric gastric ulcer" are multiple abarca-brown soft tissue fragments measuring in aggregate 0.7 x 0.3 x 0.1 cm. The specimen is submitted entirely in A1. . B. Received in formalin labeled "Valerie Cohen, antral biopsy for H. pylori" are multiple abarca-brown soft tissue fragments measuring in aggregate 1.0 x 0.3 x 0.1 cm. The specimen is submitted entirely in B1. ([facility]; 01/08/2021) [facility] 01/08/2021 1606 Local . 02 Pathologist provided ICD-10: K29.50 . 02 [facility] [address] PATHOLOGY RPT PROCEDURE Name: VALERIE COHEN Room: [address] IN [facility].#: [id number] Admission: 01/03/21 Date of : 32 Discharge: 01/05/21 Report #: [id number] Path Case #: [id number], [id number] Specimen Comment: A courtesy copy of this report has been sent to [phone] Specimen Comment: Report sent to Performed at: [address], [place], [place] [id number] MD Yuriy Solomon MD Phone: [phone] Performed at: 02 [facility] [address] Chantel Valladares, [place], [place] [id number] MD Navid Ledesma MD Phone: [phone]
== END 2021-01-05 14:55 | disposition designated cancer center or children's hospital (05) | DRG 377 ==
LOC: M.ERS 19:50 → M.TBA-ER 21:38 → M.2W 21:38 → M.TBA-ER 22:02 → M.2W 23:33
PROVIDERS: Internal Medicine; Internal Medicine Gastroenterology; Personal Emergency Response Attendant; ADMIT Internal Medicine; ATTEND Internal Medicine
PROC: 30233N1 Transfusion of Nonautologous Red Blood Cells into Peripheral Vein, Percutaneous Approach (ICD-10-PCS; principal; 2021-01-03)
PROC: 0DB68ZX Excision of Stomach, Via Natural or Artificial Opening Endoscopic, Diagnostic (ICD-10-PCS; 2021-01-04)
DX: K25.4 Chronic or unspecified gastric ulcer with hemorrhage (principal); G93.41 Metabolic encephalopathy; N17.0 Acute kidney failure with tubular necrosis; D62 Acute posthemorrhagic anemia; E44.0 Moderate protein-calorie malnutrition; Z68.1 Body mass index [BMI] 19.9 or less, adult; F03.90 Unspecified dementia, unspecified severity, without behavioral disturbance, psychotic disturbance, mood disturbance, and anxiety; E78.00 Pure hypercholesterolemia, unspecified; K21.9 Gastro-esophageal reflux disease without esophagitis; G89.29 Other chronic pain; J44.9 Chronic obstructive pulmonary disease, unspecified; M54.9 Dorsalgia, unspecified; K44.9 Diaphragmatic hernia without obstruction or gangrene; E55.9 Vitamin D deficiency, unspecified; E61.1 Iron deficiency; Z96.641 Presence of right artificial hip joint; Z20.822 Contact with and (suspected) exposure to COVID-19; Z79.82 Long term (current) use of aspirin; Z79.899 Other long term (current) drug therapy; Z88.1 Allergy status to other antibiotic agents; Z88.0 Allergy status to penicillin; Z88.2 Allergy status to sulfonamides; Z88.8 Allergy status to other drugs, medicaments and biological substances; Z91.09 Other allergy status, other than to drugs and biological substances